=== PATIENT | male | born 1945 | race Caucasian/White ===

== ENCOUNTER 2017-01-19 07:46 | Outpatient (CLI) | payer MEDICARE | END 2017-01-19 07:47 | disposition home or self-care (01) | DX: R73.9 Hyperglycemia, unspecified (principal); Z12.5 Encounter for screening for malignant neoplasm of prostate | CPT/HCPCS: 36415; 80048; G0103 ==

== ENCOUNTER 2017-06-15 16:05 | Outpatient (CLI) | payer MEDICARE | END 2017-06-15 16:06 | disposition home or self-care (01) | LOC: LAB.R 16:05 | PROVIDERS: ATTEND Physician Assistant Medical | DX: R31.9 Hematuria, unspecified (principal) | CPT/HCPCS: 87086 ==

== ENCOUNTER 2017-09-08 07:50 | Outpatient (CLI) | payer MEDICARE ==
[2017-09-08 12:43] LABS: BASOPHILS # (AUTO) 0.1 10^3/uL (0.0-0.1); BASOPHILS % (AUTO) 0.7 %; EOSINOPHILS # (AUTO) 0.4 10^3/uL (0.0-0.7); EOSINOPHILS % (AUTO) 5.2 %; HCT - HEMATOCRIT 43.9 % (42.0-52.0); HGB - HEMOGLOBIN 14.6 g/dL (14.0-18.0); LYMPHOCYTES # (AUTO) 1.9 10^3/uL (1.5-3.5); MEAN CORPUSCULAR HEMOGLOBIN 31.6 pg (27.0-31.0); MEAN CORPUSCULAR HGB CONC 33.3 g/dL (32.0-36.0); MEAN CORPUSCULAR VOLUME 94.9 fL (80.0-94.0); MEAN PLATELET VOLUME 6.7 fL (7.4-11.4); MONOCYTES # (AUTO) 0.7 10^3/uL (0.0-1.0); MONOCYTES % (AUTO) 9.2 %; NEUTROPHILS # (AUTO) 4.9 10^3/uL (1.5-6.6); NEUTROPHILS % (AUTO) 60.9 %; NUCLEATED RED BLOOD CELLS AUTO 0.1 /100WBC; RED BLOOD COUNT 4.62 10^6/uL (4.70-6.10); RED CELL DISTRIBUTION WIDTH 14.3 % (12.0-15.0); UNCORRECTED WHITE BLOOD COUNT 8.1 x10^3/uL; WHITE BLOOD COUNT 8.1 x10^3/uL (4.8-10.8)
[2017-09-08 13:07] LABS: ALBUMIN/GLOBULIN RATIO 1.1 (1.0-2.2); BILIRUBIN,TOTAL 0.5 mg/dL (0.2-1.0); BUN - BLOOD UREA NITROGEN 14 mg/dL (6-20); CALCIUM 9.3 mg/dL (8.5-10.3); CARBON DIOXIDE - CO2 24 mmol/L (21-32); CHLORIDE 105 mmol/L (101-111); CHOL/HDL RATIO 5.4 (<5.0); CHOLESTEROL 156 mg/dL; GFR - MDRD 74 (>89); GLUCOSE 98 mg/dL (70-100); HDL CHOLESTEROL 29 mg/dL; LDL/HDL RATIO 3.7 (<3.6); POTASSIUM 4.6 mmol/L (3.5-5.0); SODIUM 136 mmol/L (135-145); TOTAL PROTEIN 7.5 g/dL (6.7-8.2); TRIGLYCERIDES 94 mg/dL; VLDL CHOLESTEROL 19 mg/dL
== END 2017-09-08 07:51 | disposition home or self-care (01) ==
LOC: LAB.WCP 07:50
PROVIDERS: ATTEND Physician Assistant Medical
DX: R73.9 Hyperglycemia, unspecified (principal); I71.4 Abdominal aortic aneurysm, without rupture; K21.9 Gastro-esophageal reflux disease without esophagitis
CPT/HCPCS: 36415; 80053; 80061; 85025

== ENCOUNTER 2018-05-04 08:02 | Outpatient (CLI) | payer MEDICARE ==
--- NOTE | 2018-05-04 11:17 | CT Report ---
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 TECHNIQUE: Routine helical CT imaging was performed through the abdomen and pelvis. IV contrast: None. Enteric contrast: Yes Reconstructions: Coronal and sagittal. In accordance with CT protocol optimization, one or more of the following dose reduction techniques were utilized for this exam: automated exposure control, adjustment of mA and/or KV based on patient size, or use of iterative reconstructive technique. FINDINGS: Lung Bases: Right lung dependent changes, atelectasis versus scarring. Liver: Normal. No masses. Gallbladder/Bile Ducts: Status post cholecystectomy. No intrahepatic biliary ductal dilation on noncontrast exam. Spleen: Unremarkable Pancreas: Unremarkable Adrenal Glands: Normal. Kidneys: Redemonstration of a 1.6 cm left renal lower pole calculus with local cortical atrophy, essentially unchanged. Additional 3 mm nonobstructing calculus in the right kidney. No right hydronephrosis. Redemonstration of stable obstructing right hydroureteronephrosis due to 1.6 cm ureteral calculus without surrounding fat stranding. Peritoneal Cavity/Bowel: Normal. No free fluid, free air or adenopathy. No masses or acute inflammatory process. The patient is status post right hemicolectomy. Pelvic Organs: Normal. The bladder and visualized pelvic organs are within normal limits. Vasculature: The abdominal aortic aneurysm status post [place] is stable measuring 4.1 x 4.1 cm in maximal AP by transverse dimensions. Bones: No significant abnormality. Other: None. IMPRESSION: 1. Stable AAA measuring up to 4.1 cm status post EVAR. 2. Stable chronic right urinary obstruction by 1.6 cm ureteral calculus. Given the excellent amount of remaining renal cortical parenchyma on the right, the patient should be evaluated for surgical candidacy by urology. Alternatively, referral for percutaneous management by interventional radiology should be considered. RADIA
--- NOTE | 2018-05-04 11:36 | CT Report ---
Procedure Date: 05/04/2018 Accession Number: [id number] / [id number] Procedure: CT - Chest W/O CPT Code: FULL RESULT: EXAM: Chest W/O DATE: 05/04/2018 8:41 AM CLINICAL HISTORY: ABDOMINAL AORTIC ANEURYSM WITHOUT RUPTURE COMPARISON: CT 07/17/[address] 01/03/2016. TECHNIQUE: Routine helical CT imaging was performed through the chest. IV contrast: None. Reconstructions: Coronal and sagittal. In accordance with CT protocol optimization, one or more of the following dose reduction techniques were utilized for this exam: automated exposure control, adjustment of mA and/or KV based on patient size, or use of iterative reconstructive technique. FINDINGS: Lungs/Pleura: The previously identified regional subsolid area in the right lower lobe measures 4.5 x 2.0 cm on today's examination demonstrates increased groundglass component. New 0.9 cm left lower lobe subpleural consolidation, nonspecific. Background of emphysema. Mediastinum: Enlargement of the known descending thoracic aortic aneurysm with maximal transverse dimension of 5.9 cm maximal AP dimension of 5.6 cm (previously 5.3 x 5.2 cm when remeasured in similar fashion). No adenopathy or masses. The heart is unremarkable. Bones: Unremarkable. Visualized Abdomen: See separate dictation from the same day. Other: The patient is status post median sternotomy. IMPRESSION: Enlargement of the descending aortic thoracic aneurysm to 5.9 x 5.6 cm (previously 5.3 x 5.2 cm). RADIA
== END 2018-05-04 08:03 | disposition home or self-care (01) ==
LOC: DI 08:02
PROVIDERS: ATTEND Surgery Vascular Surgery
DX: I71.4 Abdominal aortic aneurysm, without rupture (principal); N20.2 Calculus of kidney with calculus of ureter; N13.1 Hydronephrosis with ureteral stricture, not elsewhere classified
CPT/HCPCS: 71250; 74176

== ENCOUNTER 2019-01-03 08:00 | Outpatient (CLI) | payer MEDICARE | END 2019-01-03 23:59 | disposition home or self-care (01) | LOC: LAB.WCP 08:00 | PROVIDERS: ATTEND Physician Assistant Medical | DX: Z86.711 Personal history of pulmonary embolism (principal); Z79.01 Long term (current) use of anticoagulants | CPT/HCPCS: 81025 ==

== ENCOUNTER 2019-02-17 08:00 | Outpatient (CLI) | payer MEDICARE | END 2019-02-17 23:59 | disposition home or self-care (01) | LOC: LAB.WCP 08:00 | PROVIDERS: ATTEND Physician Assistant Medical | DX: Z51.81 Encounter for therapeutic drug level monitoring (principal); Z86.711 Personal history of pulmonary embolism; Z79.01 Long term (current) use of anticoagulants ==

== ENCOUNTER 2019-03-23 07:53 | Outpatient (CLI) | payer MEDICARE ==
--- NOTE | 2019-03-24 11:34 | Ultrasound Report ---
Reason: SOFT TISSUE MASS Procedure Date: 03/23/2019 Accession Number: [id number] / [id number] Procedure: US - Head or Neck Soft Tissue CPT Code: FULL RESULT: EXAM: NECK ULTRASOUND EXAM DATE: 03/23/2019 09:00 AM. CLINICAL HISTORY: Soft tissue mass. COMPARISON: NECK SOFT TISSUE W/O 07/17/2014 10:03 AM. TECHNIQUE: Real-time sonographic imaging was performed by the federal mediation commissioner utilizing color-flow. Multiple utility sales representative static images were saved for review. FINDINGS: No abnormal lymph nodes. No mass or collection identified. In the right submandibular region, there is a morphologically normal lymph node with normal fatty racheal measuring 2 x 0.3 x 1.1 cm. No abnormal calcifications are present. Remaining soft tissues are normal. IMPRESSION: 1. Morphologically normal 2 x 0.3 x 1.1 cm right submandibular node in area of concern. No abnormal calcifications. 2. No associated mass, bulky adenopathy or collection. RADIA
== END 2019-03-23 07:54 | disposition home or self-care (01) ==
LOC: DI 07:53
PROVIDERS: ATTEND Physician Assistant Medical
DX: M79.9 Soft tissue disorder, unspecified (principal)
CPT/HCPCS: 76536

== ENCOUNTER 2019-04-13 07:51 | Outpatient (CLI) | payer MEDICARE ==
[2019-04-13 08:09] LABS: BASOPHILS # (AUTO) 0.1 10^3/uL (0.0-0.1); BASOPHILS % (AUTO) 0.7 %; EOSINOPHILS # (AUTO) 0.3 10^3/uL (0.0-0.7); EOSINOPHILS % (AUTO) 3.4 %; HGB - HEMOGLOBIN 15.1 g/dL (14.0-18.0); LYMPHOCYTES # (AUTO) 2.3 10^3/uL (1.5-3.5); LYMPHOCYTES % (AUTO) 28.7 %; MEAN CORPUSCULAR HEMOGLOBIN 31.8 pg (27.0-31.0); MEAN CORPUSCULAR HGB CONC 32.4 g/dL (32.0-36.0); MEAN CORPUSCULAR VOLUME 98.1 fL (80.0-94.0); MEAN PLATELET VOLUME 8.8 fL (7.4-11.4); MONOCYTES # (AUTO) 0.9 10^3/uL (0.0-1.0); MONOCYTES % (AUTO) 11.6 %; NEUTROPHILS # (AUTO) 4.4 10^3/uL (1.5-6.6); NEUTROPHILS % (AUTO) 55.2 %; PLT - PLATELET COUNT 144 10^3/uL (130-450); RED BLOOD COUNT 4.75 10^6/uL (4.70-6.10); RED CELL DISTRIBUTION WIDTH 13.8 % (12.0-15.0)
[2019-04-13 08:26] LABS: ALBUMIN 4.2 g/dL (3.2-5.5); ALBUMIN/GLOBULIN RATIO 1.2 (1.0-2.2); ALKALINE PHOSPHATASE 58 IU/L (42-121); ALT ALANINE AMINOTRANSFERASE 29 IU/L (10-60); AST ASPARTATE AMINOTRANSFERASE 25 IU/L (10-42); BILIRUBIN,TOTAL 0.7 mg/dL (0.2-1.0); BUN - BLOOD UREA NITROGEN 21 mg/dL (6-20); CALCIUM 9.4 mg/dL (8.5-10.3); CARBON DIOXIDE - CO2 28 mmol/L (21-32); CHLORIDE 99 mmol/L (101-111); CHOL/HDL RATIO 5.6 (<5.0); CHOLESTEROL 161 mg/dL; CREATININE 0.9 mg/dL (0.6-1.2); GFR - MDRD 83 (>89); GLUCOSE 100 mg/dL (70-100); HDL CHOLESTEROL 29 mg/dL; LDL CHOLESTEROL,CALCULATED 108 mg/dL; LDL/HDL RATIO 3.7 (<3.6); SODIUM 137 mmol/L (135-145); TOTAL PROTEIN 7.8 g/dL (6.7-8.2); VLDL CHOLESTEROL 24 mg/dL
== END 2019-04-13 07:52 | disposition home or self-care (01) ==
LOC: LAB 07:51
PROVIDERS: ATTEND Physician Assistant Medical
DX: I10 Essential (primary) hypertension (principal); R73.9 Hyperglycemia, unspecified; K21.9 Gastro-esophageal reflux disease without esophagitis
CPT/HCPCS: 36415; 80053; 80061; 83721; 85025

== ENCOUNTER 2019-05-06 07:08 | Outpatient (CLI) | payer MEDICARE ==
[2019-05-06] MEDS ORDERED: IOVERSOL 320 100 ML VIAL IVP ONE ×2 (07:24→07:55)
--- NOTE | 2019-05-06 12:46 | CT Report ---
Reason: THORACOABDOMINAL AORTIC ANEURYSM W/O RUPTURE Procedure Date: 05/06/2019 Accession Number: [id number] / [id number] Procedure: CT - ANGIO CHEST W/WO CPT Code: FULL RESULT: EXAM: CTA CHEST EXAM DATE: 05/06/2019 07:46 AM. 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 COMPARISON: CHEST W/O 05/04/2018 8:22 AM. HEAD OR NECK SOFT TISSUE 03/23/2019 8:38 AM. ABDOMEN/PELVIS W/O 05/04/2018 8:22 AM. TECHNIQUE: Prior to and following intravenous administration of Optiray 320; 80 mL, multiplanar 3D/MIP reconstruction of the thoracic aorta was performed. In accordance with CT protocol optimization, one or more of the following dose reduction techniques were utilized for this exam: automated exposure control, adjustment of mA and/or KV based on patient size, or use of iterative reconstructive technique. 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 The aneurysm is overall fusiform in appearance and begins 3.8 cm from the vessel origin at the aortic arch just distal to the origin of the left vertebral artery which arises from this vessel. The mostly fusiform aneurysm demonstrates a saccular outpouching posteriorly as it gives rise to the second intercostal artery on the left. Overall dimensions are a length of approximately 5.2 cm by a height of approximately 2.2 cm with the widest AP dimension of 2.7 cm at the site of the intercostal artery origin. Within the limitations of the noncontrast study performed in 2018, comparison reveals a relatively similar configuration and size. The sinuses of Valsalva measure 4.2 x 3.3 cm. The sinotubular junction measures 3.6 x 3.2 cm. The proximal ascending thoracic aorta measures 3.6 x 3.4 cm. Distal ascending aorta just proximal to the stent measures 3.5 x 3.2 cm. The aortic arch measures 3.0 x 3.2 cm. Aorta distal to the last takeoff measures 3.4 x 3.5 cm. The proximal descending thoracic aorta measures 3.3 x 3.6 cm. The distal descending thoracic aorta, distal to stent graft, measures 3.2 x 3.2 cm. Lungs/Pleura: Mild amount of apical scarring and upper lobe predominant emphysema, mild to moderate. There is a 1.4 x 1.3 cm nodule adjacent to the right hilum on image 71 series 7, previously up to 1.0 cm in 2018. A triangular fissure-based right lower lobe nodule measuring up to 0.7 cm can be seen on image 92. A small amount of atelectasis is seen in the right lower lobe on image 115. No consolidation, or edema. No effusions or pneumothorax. Mediastinum: A left thyroid nodule is noted, peripherally enhancing and centrally hypoechoic, approximately 1 cm on image 13. There is prominence of left hilar nodes as seen on image 86 series 14 and image 72 series 7, up to 1 cm in short axis, less pronounced appearance in the left hilum see image 80, 0.6 cm in short axis. Upper Abdomen: A low density 7.5 x 6.6 cm upper pole right renal lesion is not characterized on this examination, measured simple fluid in April 2018. Other: None. IMPRESSION: Interval stent graft repair of the aorta with improved caliber and no evidence of stent graft failure. Similar-appearing left subclavian artery aneurysm as described. Interval enlargement of the largest pulmonary nodule, recommend transbronchial biopsy given location favorable for this approach or characterization by PET CT. Thyroid nodule as described, recommend thyroid ultrasound on routine outpatient basis. RADIA
== END 2019-05-06 07:09 | disposition home or self-care (01) ==
LOC: DI 07:08
PROVIDERS: ATTEND Surgery Vascular Surgery
DX: I72.8 Aneurysm of other specified arteries (principal); R91.1 Solitary pulmonary nodule; E04.1 Nontoxic single thyroid nodule; J43.9 Emphysema, unspecified
CPT/HCPCS: 71275; Q9967

== ENCOUNTER 2019-06-07 12:06 | Outpatient (CLI) | payer MEDICARE ==
--- NOTE | 2019-06-09 03:17 | CT Report ---
Reason: ABDOMINAL AORTIC ANEURYSM W/O RUPTURE Procedure Date: 06/07/2019 Accession Number: [id number] / [id number] Procedure: CT - Abdomen/Pelvis WO CPT Code: FULL RESULT: EXAM: CT ABDOMEN AND PELVIS EXAM DATE: 06/07/2019 12:24 PM. CLINICAL HISTORY: Abdominal aortic aneurysm without rupture. COMPARISONS: CHEST ANGIO 05/06/2019 7:38 AM ABDOMEN/PELVIS W/O 05/04/2018 8:22 AM. TECHNIQUE: Routine helical CT imaging was performed through the abdomen and pelvis. IV contrast: None. Enteric contrast: No. Reconstructions: Coronal and sagittal. In accordance with CT protocol optimization, one or more of the following dose reduction techniques were utilized for this exam: automated exposure control, adjustment of mA and/or KV based on patient size, or use of iterative reconstructive technique. FINDINGS: Lung Bases: Mild atelectatic change in right lower lobe. Liver: Unremarkable noncontrast CT. No masses. Gallbladder/Bile Ducts: Cholecystectomy. No biliary dilation. Spleen: Stable in configuration, unremarkable. Pancreas: Normal. Adrenal Glands: Normal. Kidneys: Redemonstration of left lower pole renal calculi/calcifications and scarring. Redemonstration of right hydroureteronephrosis due to 1.6 cm proximal ureteral calculus, stable. Additional nonobstructive right renal calculi versus milk of calcium. Stable right upper pole renal cyst. Peritoneal Cavity/Bowel: No bowel obstruction or significant bowel wall thickening. Scattered colonic diverticula without evidence of acute diverticulitis. Stable postsurgical changes of right hemicolectomy. No free fluid or free air. Mildly prominent inguinal lymph nodes. No mesenteric or retroperitoneal lymphadenopathy. Pelvic Organs: Bladder is underdistended. Stable prostate measuring 4.4 cm transverse. Vasculature: Stable aortobiiliac stent graft repair of infrarenal abdominal aorta measuring 4.1 x 4.1 cm in maximum AP by transverse dimensions. Atherosclerotic vascular disease. Stable appearance of celiac axis and SMA which appear diminutive with calcifications. No retroperitoneal hemorrhage. Bones: Degenerative changes of lumbar spine. No acute osseous abnormality. IMPRESSION: 1. Stable aortobiiliac stent graft repair of infrarenal AAA measuring up to 4.1 cm. 2. Stable chronic right urinary obstruction due to 1.6 cm right proximal ureteral calculus with hydroureteronephrosis. Urology consultation suggested for further evaluation/management if not already performed. Additional stable bilateral renal findings as above. 3. Status post cholecystectomy and right hemicolectomy. RADIA
--- NOTE | 2019-06-09 03:45 | CT Report ---
Reason: ABDOMINAL AORTIC ANEURYSM W/O RUPTURE Procedure Date: 06/07/2019 Accession Number: [id number] / [id number] Procedure: CT - CHEST WO CPT Code: FULL RESULT: EXAM: CT CHEST EXAM DATE: 06/07/2019 12:24 PM. CLINICAL HISTORY: ABDOMINAL AORTIC ANEURYSM W/O RUPTURE. COMPARISONS: CHEST ANGIO 05/06/2019 7:38 AM. TECHNIQUE: Routine helical CT imaging was performed through the chest. IV contrast: None. Reconstructions: Coronal and sagittal. In accordance with CT protocol optimization, one or more of the following dose reduction techniques were utilized for this exam: automated exposure control, adjustment of mA and/or KV based on patient size, or use of iterative reconstructive technique. FINDINGS: Vascular Structures: Stable endovascular repair of thoracic aortic aneurysm. Ascending thoracic aorta measures 3.6 cm. Aortic arch just proximal to stent measures 3.4 cm. Aortic arch measures 3.7 cm. Descending thoracic aorta measures 3.6 cm. 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 Stable endovascular repair of abdominal aortic aneurysm. Coronary artery calcifications are present. Aortic valve calcifications are present. Lungs/Pleura: Stable appearance of lungs with mild apical scarring and scattered mild interstitial prominence and mild scarring in lateral aspect of right lower lobe. Stable 10 mm right perihilar nodule. No focal consolidation or pulmonary edema. Mild central bronchial wall thickening. No pleural effusion or pneumothorax. Mediastinum: Normal cardiac size. No pericardial effusion. No mediastinal lymphadenopathy.. Bones: Osseous degenerative changes. No acute abnormality. Visualized Abdomen: Mild fatty infiltration of liver. Cholecystectomy. Stable right upper pole low attenuation renal lesion. Bilateral renal calcifications/calculi with obstructive calculus in right proximal ureter with moderate hydroureteronephrosis. Postsurgical changes of right hemicolectomy. IMPRESSION: 1. Stable stent graft repair of thoracic aorta. 2. Stable aneurysmal dilation of left subclavian artery. 3. Stable right perihilar 10 mm nodule. Further workup recommended if not already performed. 4. No evidence of acute abnormality in the chest. 5. Nonacute findings in visualized abdomen include mild hepatic steatosis, obstructive right proximal ureteral calculus with moderate hydroureteronephrosis and other incidental findings described above. RADIA
== END 2019-06-07 12:07 | disposition home or self-care (01) ==
LOC: DI 12:06
PROVIDERS: ATTEND Surgery Vascular Surgery
DX: I72.8 Aneurysm of other specified arteries (principal); N13.2 Hydronephrosis with renal and ureteral calculous obstruction; R91.1 Solitary pulmonary nodule; K76.0 Fatty (change of) liver, not elsewhere classified; Z90.49 Acquired absence of other specified parts of digestive tract
CPT/HCPCS: 71250; 74176

== ENCOUNTER 2019-06-15 08:00 | Outpatient (CLI) | payer MEDICARE | END 2019-06-15 23:59 | disposition home or self-care (01) | LOC: LAB.WCP 08:00 | PROVIDERS: ATTEND Physician Assistant Medical | DX: Z86.711 Personal history of pulmonary embolism (principal); Z79.01 Long term (current) use of anticoagulants ==

== ENCOUNTER 2019-06-28 10:04 | Outpatient (CLI) | payer MEDICARE ==
--- NOTE | 2019-06-29 09:58 | Ultrasound Report ---
Reason: SUBCLAVIAN ANEURYSM Procedure Date: 06/28/2019 Accession Number: [id number] / [id number] Procedure: US - Duplex Upr Ext Arterial LT CPT Code: FULL RESULT: EXAM: UNILATERAL LEFT UPPER EXTREMITY ARTERIAL DOPPLER ULTRASOUND EXAM DATE: 06/28/2019 11:08 AM. CLINICAL HISTORY: Subclavian aneurysm. COMPARISON: CHEST ANGIO 05/06/2019 7:38 AM. TECHNIQUE: Real-time sonographic vascular imaging was performed by the locomotive pipe fitter, utilizing color-flow, Doppler flow, and spectral analysis. Multiple accounts receivable representative static images were saved for review. FINDINGS: Proximal left subclavian arterial aneurysm measuring 2.7 x 2.7 cm, previously 2.6 cm on CTA 05/06/2019. Triphasic Doppler waveforms. Left Upper Extremity Velocities: Subclavian prox: 29 cm/s. Subclavian mid: 34 cm/s. Subclavian distal: 60 cm/s. Axillary: 25 cm/s. Brachial prox: 41 cm/s. Brachial dist: 53 cm/s. Radial prox: 33 cm/s. Radial distal: 42 cm/s. Ulnar prox: 28 cm/s Ulnar dist: 29 cm/s. IMPRESSION: 1. Proximal left subclavian arterial aneurysm is again noted. No significant interval change compared to CTA 05/06/2019. RADIA
== END 2019-06-28 10:05 | disposition home or self-care (01) ==
LOC: DI 10:04
PROVIDERS: ATTEND Surgery Vascular Surgery
DX: I72.8 Aneurysm of other specified arteries (principal)

== ENCOUNTER 2019-07-13 08:00 | Outpatient (CLI) | payer MEDICARE | END 2019-07-13 23:59 | disposition home or self-care (01) | LOC: LAB.WCP 08:00 | PROVIDERS: ATTEND Physician Assistant Medical | DX: Z86.711 Personal history of pulmonary embolism (principal); Z79.01 Long term (current) use of anticoagulants ==

== ENCOUNTER 2019-07-17 08:53 | Emergency (ER) | payer MEDICARE ==
--- NOTE | 2019-07-17 09:05 | ED Physician Documentation ---
PD HPI CHEST PAIN - Stated complaint Stated Complaint: LT ARM PX/NAUSEA/SWEATING - History obtained from History obtained from: Patient - History of Present Illness Timing - onset: How many minutes ago (45) Timing - onset during: Rest Timing - duration: Minutes (45) Timing - details: Abrupt onset (Patient states he had an abrupt onset of substernal chest pain and pressure associated with lightheadedness nausea and sweatiness. He did feel some shortness of breath. There is no pleuritic pain. He denies any prior similar episodes.) Quality: Pressure, Tightness Location: Substernal Radiation: Left upper extremity Improved by: No: Rest Worsened by: No: Inspiration, Movement Associated symptoms: Diaphoresis, Nausea, Feeling faint / dizzy, General Weakness. No: Cough Similar symptoms before: Has not had sx before Recently seen: Not recently seen Review of Systems Constitutional: denies: Fever, Chills Nose: denies: Rhinorrhea / runny nose, Congestion Throat: denies: Sore throat Respiratory: denies: Cough GI: reports: Nausea. denies: Vomiting, Diarrhea Neurologic: denies: Focal weakness, Numbness, Near syncope, Headache PD PAST MEDICAL HISTORY - Past Medical History Cardiovascular: Deep vein thrombosis, Pulmonary embolism Respiratory: Sleep apnea, CPAP use Endocrine/Autoimmune: None GI: Other : Kidney stones HEENT: None Psych: Depression Musculoskeletal: Osteoarthritis Derm: None - Past Surgical History Past Surgical History: Yes General: Cholecystectomy - Present Medications Home Medications: Ambulatory Orders Medication Instructions Recorded Confirmed Ascorbic Acid [Vitamin C] 1,000 mg PO DAILY 03/24/13 08/20/16 Cholecalciferol (Vitamin D3) 500 unit PO DAILY 03/24/13 08/20/16 [Vitamin D3] Multivitamin [Multivitamins] 1 each PO DAILY 03/24/13 08/20/16 Warfarin Sodium 5 mg PO DAILY 03/24/13 08/20/16 Citalopram [CeleXA] 40 mg PO DAILY 10/08/13 08/20/16 Tramadol HCl 50 mg PO TID PRN 10/08/13 08/20/16 Zolpidem Tartrate [Ambien] 10 mg PO DAILY PRN 03/01/14 08/20/16 Metoprolol Succinate 25 mg PO DAILY 04/30/15 08/20/16 - Allergies Allergies/Adverse Reactions: Allergies Allergy/AdvReac Type Severity Reaction Status Date / Time oxycodone AdvReac Hallucinati Verified 07/17/19 09:02 ons - Social History Does the pt smoke?: Yes Smoking Status: Current every day smoker Does the pt drink ETOH?: No Does the pt have substance abuse?: No PD ED PE NORMAL - Vitals Vital signs reviewed: Yes - General General: Alert and oriented X 3, Well developed/nourished, Other (He appears slightly sweaty and diaphoretic. Mild pallor. He is respirations are unlabored.) - HEENT HEENT: Atraumatic - Neck Neck: Supple, no meningeal sign, No adenopathy - Cardiac Cardiac: RRR, No murmur - Respiratory Respiratory: Clear bilaterally - Abdomen Abdomen: Soft, Non tender - Derm Derm: Normal color, Warm and dry - Extremities Extremities: No tenderness to palpate, Normal ROM s pain, No calf tenderness / cord, Other (1+ edema in both ankles. ) - Neuro Neuro: Alert and oriented X 3, No motor deficit, Normal speech Eye Opening: Spontaneous Motor: Obeys Commands Verbal: Oriented GCS Score: 15 Results - Vitals Vitals: Vital Signs - 24 hr 07/17/19 09:02 Temperature 36.3 C L Heart Rate 85 Respiratory 17 Rate Blood Pressure 182/95 H O2 Saturation 96 Oxygen O2 Source Room air - EKG (time done) on presentation Rate: Rate (enter#) Rhythm: NSR [place]: Normal Intervals: Normal SC QRS: Normal Ischemia: Normal ST segments, ST elevation c/w ischemia (Leads I and aVL), ST depression (inferior Lead 2 and 3) PD MEDICAL DECISION MAKING - ED course Complexity details: reviewed results, re-evaluated patient (He is feeling nauseated. He did start having improvement in his pain and ST elevations appearing improving after NTG and Metoprolol. HR to 45 but remains consistent at that jordy. BP improved. ), d/w compensation consultant (Dr. Cisneros, ER at [facility], who accepts the STEMI transfer) ED course: Had patient ready for transfer including all medications and last drips started at about the 32-minute mack. EMS was contemplating whether we should try helicopter transfer. I talked with the lead medic about having a pre-existing streamlined protocol for STEMI transfers and the time to reexamine that would be in committee or other discussion and not at this point. Subsequently they did agree to do a ground transfer. However that did cause some delay. The patient's left the department in stable condition with heart rate in the 40s, adequate blood pressure, improving symptoms, IVs in place and medications running. - Critical Care Time(min): 40 Time Includes: Direct patient care, Reassess patient, Document care, Coordinate care, Medical consult Data interpretation: Labs, CXR Procedures excluded from critical care time: EKG Departure - Departure Disposition: 02 Transfer Acute Care Hosp Clinical Impression: ST elevation myocardial infarction (STEMI) of inferolateral wall Condition: Stable Record reviewed to determine appropriate education?: Yes
[2019-07-17] MEDS ORDERED: ASPIRIN CHEW 81 MG TABLET PO ONE (09:10)
[2019-07-17] MEDS ORDERED: MORPHINE 2 MG/ML CARPUJECT IVP STA (09:13)
[2019-07-17] MEDS ORDERED: SODIUM CHLORIDE 0.9% 1,000 ML IV ONE (09:14)
[2019-07-17] MEDS: CLOPIDOGREL 300 MG TABLET PO ONE (09:19)
[2019-07-17] MEDS ORDERED: HEPARIN 5,000 UNIT/ML VIAL ONE (09:21)
[2019-07-17] MEDS ORDERED: ASPIRIN CHEW 81 MG TABLET ONE (09:21)
[2019-07-17] MEDS ORDERED: CLOPIDOGREL 300 MG TABLET PO ONE (09:21)
[2019-07-17] MEDS: NITROGLYCERIN SL 0.4 MG TABLET SL STA ×2 (09:21→09:27)
[2019-07-17] MEDS ORDERED: NITROGLYCERIN SL 0.4 MG TABLET SL ONE (09:21)
[2019-07-17] MEDS ORDERED: ONDANSETRON 4 MG/2 ML VIAL IVP STA (09:21)
[2019-07-17] MEDS ORDERED: METOPROLOL TARTRATE 50 MG TABLET ONE (09:21)
[2019-07-17] MEDS ORDERED: HEPARIN 25000UNITS/500ML (D5W) 25,000 UNIT/500 ML BAG IV ONE (09:22)
[2019-07-17] MEDS ORDERED: METOPROLOL 5 MG/5 ML VIAL IVP STA (09:24)
[2019-07-17 09:27] LABS: BASOPHILS % (AUTO) 0.5 %; EOSINOPHILS % (AUTO) 0.2 %; HGB - HEMOGLOBIN 15.7 g/dL (14.0-18.0); LYMPHOCYTES # (AUTO) 2.7 10^3/uL (1.5-3.5); LYMPHOCYTES % (AUTO) 32.9 %; MEAN CORPUSCULAR HGB CONC 33.3 g/dL (32.0-36.0); MEAN CORPUSCULAR VOLUME 95.9 fL (80.0-94.0); MEAN PLATELET VOLUME 8.4 fL (7.4-11.4); MONOCYTES # (AUTO) 0.9 10^3/uL (0.0-1.0); MONOCYTES % (AUTO) 11.4 %; NEUTROPHILS # (AUTO) 4.4 10^3/uL (1.5-6.6); NEUTROPHILS % (AUTO) 54.6 %; PLT - PLATELET COUNT 176 10^3/uL (130-450); RED BLOOD COUNT 4.91 10^6/uL (4.70-6.10); RED CELL DISTRIBUTION WIDTH 14.2 % (12.0-15.0); WHITE BLOOD COUNT 8.1 x10^3/uL (4.8-10.8)
[2019-07-17] MEDS ORDERED: NITROGLYCERIN 50 MG/250 ML 50 MG/250 ML BOTTLE IV STA (09:27)
[2019-07-17] MEDS ORDERED: ONDANSETRON 4 MG/2 ML VIAL ONE (09:34)
[2019-07-17 09:38] LABS: ALBUMIN 4.3 g/dL (3.2-5.5); ALBUMIN/GLOBULIN RATIO 1.1 (1.0-2.2); BILIRUBIN,TOTAL 0.8 mg/dL (0.2-1.0); CALCIUM 8.9 mg/dL (8.5-10.3); TOTAL PROTEIN 8.2 g/dL (6.7-8.2)
[2019-07-17 09:41] VITALS: BP 98/60
--- NOTE | 2019-07-17 09:54 | XRAY Report ---
Reason: chest pain Procedure Date: 07/17/2019 Accession Number: [id number] / [id number] Procedure: XR - Chest 1 View X-Ray CPT Code: 07894 FULL RESULT: EXAM: CHEST RADIOGRAPHY EXAM DATE: 07/17/2019 09:04 AM. CLINICAL HISTORY: Chest pain. COMPARISON: CHEST W/O 06/07/2019 12:14 PM. TECHNIQUE: 1 view. FINDINGS: Lungs/Pleura: No focal opacities evident. No pleural effusion. No pneumothorax. Mediastinum: Intact median sternotomy wires. Stable endograft stent repair of the aortic arch and proximal descending aorta. Surgical clips in the right axillary region. Other: None. IMPRESSION: No radiographic evidence of acute cardiopulmonary disease. RADIA
[2019-07-17 09:59] LABS: INR 1.8 (0.8-1.2); PT - PROTHROMBIN TIME 19.5 secs (9.9-12.6)
[2019-07-17] MEDS ORDERED: HEPARIN 25000UNITS/500ML (D5W) 25,000 UNIT/500 ML BAG IV SCH (10:00)
[2019-07-17] MEDS ORDERED: ATORVASTATIN 40 MG TABLET PO SCH (21:00)
== END 2019-07-17 09:57 | disposition short-term general hospital (02) ==
LOC: ED 08:53
DX: I21.19 ST elevation (STEMI) myocardial infarction involving other coronary artery of inferior wall (principal); Z86.711 Personal history of pulmonary embolism; Z86.718 Personal history of other venous thrombosis and embolism; Z79.01 Long term (current) use of anticoagulants; F17.200 Nicotine dependence, unspecified, uncomplicated
CPT/HCPCS: 36415; 71045; 80053; 83690; 84484; 85025; 85610; 93005; 96374; 96375; 99285; 99291; A9270

== ENCOUNTER 2019-07-17 09:46 | Outpatient (CLI) | payer MEDICARE | END 2019-07-17 09:47 | disposition short-term general hospital (02) | LOC: EMS 09:46 | PROVIDERS: ATTEND Surgery | DX: I21.19 ST elevation (STEMI) myocardial infarction involving other coronary artery of inferior wall (principal) | CPT/HCPCS: A0425; A0433 ==

== ENCOUNTER 2020-08-01 08:00 | Outpatient (CLI) | payer MEDICARE ==
[2020-08-01 12:25] LABS: BASOPHILS # (AUTO) 0.1 10^3/uL (0.0-0.1); BASOPHILS % (AUTO) 0.8 %; EOSINOPHILS # (AUTO) 0.2 10^3/uL (0.0-0.7); EOSINOPHILS % (AUTO) 2.4 %; HGB - HEMOGLOBIN 14.8 g/dL (14.0-18.0); LYMPHOCYTES # (AUTO) 1.9 10^3/uL (1.5-3.5); LYMPHOCYTES % (AUTO) 22.3 %; MEAN CORPUSCULAR HGB CONC 32.5 g/dL (32.0-36.0); MEAN CORPUSCULAR VOLUME 98.5 fL (80.0-94.0); MEAN PLATELET VOLUME 9.2 fL (7.4-11.4); MONOCYTES # (AUTO) 0.9 10^3/uL (0.0-1.0); MONOCYTES % (AUTO) 9.9 %; NEUTROPHILS # (AUTO) 5.6 10^3/uL (1.5-6.6); NEUTROPHILS % (AUTO) 64.3 %; PLT - PLATELET COUNT 185 10^3/uL (130-450); RED BLOOD COUNT 4.62 10^6/uL (4.70-6.10); RED CELL DISTRIBUTION WIDTH 14.9 % (12.0-15.0); WHITE BLOOD COUNT 8.7 x10^3/uL (4.8-10.8)
[2020-08-01 12:57] LABS: ALBUMIN 4.3 g/dL (3.2-5.5); ALBUMIN/GLOBULIN RATIO 1.3 (1.0-2.2); ALKALINE PHOSPHATASE 75 IU/L (42-121); ALT ALANINE AMINOTRANSFERASE 27 IU/L (10-60); AST ASPARTATE AMINOTRANSFERASE 25 IU/L (10-42); BILIRUBIN,TOTAL 0.7 mg/dL (0.2-1.0); BUN - BLOOD UREA NITROGEN 17 mg/dL (6-20); CALCIUM 9.7 mg/dL (8.5-10.3); CARBON DIOXIDE - CO2 24 mmol/L (21-32); CHLORIDE 106 mmol/L (101-111); CHOL/HDL RATIO 3.4 (<5.0); CHOLESTEROL 105 mg/dL; CREATININE 1.1 mg/dL (0.6-1.2); GLUCOSE 116 mg/dL (70-100); HDL CHOLESTEROL 31 mg/dL; LDL CHOLESTEROL,CALCULATED 61 mg/dL; SODIUM 139 mmol/L (135-145); TOTAL PROTEIN 7.5 g/dL (6.7-8.2); VLDL CHOLESTEROL 13 mg/dL
[2020-08-01 13:13] LABS: HEMOGLOBIN A1c% 6.6 % (4.27-6.07)
== END 2020-08-01 23:59 | disposition home or self-care (01) ==
LOC: LAB.WCP 08:00
PROVIDERS: ATTEND Physician Assistant Medical
DX: I10 Essential (primary) hypertension (principal); I21.3 ST elevation (STEMI) myocardial infarction of unspecified site; R73.9 Hyperglycemia, unspecified
CPT/HCPCS: 36415; 80053; 80061; 83036; 83721; 85025

== ENCOUNTER 2020-09-14 08:00 | Outpatient (CLI) | payer MEDICARE | END 2020-09-14 23:59 | disposition home or self-care (01) | LOC: LAB.WCP 08:00 | PROVIDERS: ATTEND Physician Assistant | DX: Z79.01 Long term (current) use of anticoagulants (principal) ==

== ENCOUNTER 2021-01-23 08:00 | Outpatient (CLI) | payer MEDICARE | END 2021-01-23 23:59 | disposition home or self-care (01) | LOC: LAB.N 08:00 | PROVIDERS: ATTEND Physician Assistant Medical | DX: Z86.711 Personal history of pulmonary embolism (principal); Z79.01 Long term (current) use of anticoagulants ==

== ENCOUNTER 2021-01-25 07:36 | Outpatient (CLI) | payer MEDICARE ==
[2021-01-25 08:19] LABS: CREATININE,URINE 212.6 mg/dL; MICROALBUM/CREATININE RATIO,UR 8.5 ug/mg (<30.0); MICROALBUMIN,URINE 1.8 mg/dL (0-300.0)
[2021-01-25 08:24] LABS: ALBUMIN 4.4 g/dL (3.2-5.5); ALBUMIN/GLOBULIN RATIO 1.3 (1.0-2.2); ALKALINE PHOSPHATASE 77 IU/L (42-121); ALT ALANINE AMINOTRANSFERASE 30 IU/L (10-60); AST ASPARTATE AMINOTRANSFERASE 30 IU/L (10-42); BUN - BLOOD UREA NITROGEN 16 mg/dL (6-20); CALCIUM 9.6 mg/dL (8.5-10.3); CARBON DIOXIDE - CO2 27 mmol/L (21-32); CHLORIDE 106 mmol/L (101-111); CHOL/HDL RATIO 3.8 (<5.0); CHOLESTEROL 99 mg/dL; CREATININE 1.1 mg/dL (0.6-1.2); GFR - MDRD 65 (>89); GLUCOSE 126 mg/dL (70-100); HDL CHOLESTEROL 26 mg/dL; LDL CHOLESTEROL,CALCULATED 57 mg/dL; LDL/HDL RATIO 2.2 (<3.6); POTASSIUM 4.3 mmol/L (3.5-5.0); SODIUM 141 mmol/L (135-145); TOTAL PROTEIN 7.8 g/dL (6.7-8.2); TRIGLYCERIDES 79 mg/dL; VLDL CHOLESTEROL 16 mg/dL
[2021-01-25 08:35] LABS: THYROID STIMULATING HORMONE 1.09 uIU/mL (0.34-5.60)
[2021-01-25 12:09] LABS: ESTIMATED AVERAGE GLUCOSE 134 mg/dL (70-100); HEMOGLOBIN A1c% 6.3 % (4.27-6.07)
== END 2021-01-25 07:37 | disposition home or self-care (01) ==
LOC: LAB 07:36
PROVIDERS: ATTEND Physician Assistant Medical
DX: E11.9 Type 2 diabetes mellitus without complications (principal)
CPT/HCPCS: 36415; 80053; 80061; 82043; 82570; 83036; 83721; 84443

== ENCOUNTER 2021-02-08 08:00 | Outpatient (CLI) | payer MEDICARE | END 2021-02-08 23:59 | disposition home or self-care (01) | LOC: LAB.N 08:00 | PROVIDERS: ATTEND Physician Assistant Medical | DX: Z79.01 Long term (current) use of anticoagulants (principal); Z86.711 Personal history of pulmonary embolism ==

== ENCOUNTER 2021-04-17 08:00 | Outpatient (CLI) | payer MEDICARE | END 2021-04-17 23:59 | disposition home or self-care (01) | LOC: LAB.N 08:00 | PROVIDERS: ATTEND Physician Assistant Medical | DX: Z79.01 Long term (current) use of anticoagulants (principal); Z86.711 Personal history of pulmonary embolism ==

== ENCOUNTER 2021-04-20 11:50 | Emergency (ER) | payer MEDICARE ==
--- NOTE | 2021-04-20 14:29 | ED Physician Documentation ---
History of Present Illness - Stated complaint Stated Complaint: DIARRHEA - Chief complaint Chief Complaint: Abd Pain - Additonal information Additional information: 76-year-old male presents the emergency department for evaluation of diarrhea that is been ongoing for about 2 weeks. It began after eating guacamole at his grandsons graduation. The next morning he noted that he had some soft stool but over the last 2 weeks he has been having 2 bouts of watery sometimes mushy green stools. He denies fevers or abdominal pain. No significant cramping. He is concerned as this has failed to improve. He does have a remote history of colon resection secondary to a mass his biggest concern today is that the diarrhea may be related to colon cancer. Review of Systems Constitutional: denies: Fever, Chills Eyes: reports: Reviewed and negative Ears: reports: Reviewed and negative Nose: reports: Rhinorrhea / runny nose Throat: reports: Reviewed and negative Cardiac: reports: Reviewed and negative Respiratory: reports: Reviewed and negative GI: reports: Diarrhea : reports: Reviewed and negative Skin: reports: Reviewed and negative PD PAST MEDICAL HISTORY - Past Medical History Past Medical History: Yes Cardiovascular: Hypertension, Deep vein thrombosis, Pulmonary embolism, [place], Other Respiratory: Sleep apnea, CPAP use Endocrine/Autoimmune: Type 2 diabetes GI: GERD, Other : Kidney stones HEENT: None Psych: Depression Musculoskeletal: Osteoarthritis Derm: None - Past Surgical History Past Surgical History: Yes General: Cholecystectomy - Present Medications Home Medications: Ambulatory Orders Medication Instructions Recorded Confirmed Ascorbic Acid [Vitamin C] 1,000 mg PO DAILY 03/24/13 11/27/20 Cholecalciferol (Vitamin D3) 50 mcg PO DAILY 03/24/13 11/27/20 [Vitamin D3] Multivitamin [Multivitamins] 1 each PO DAILY 03/24/13 11/27/20 Warfarin Sodium 5 mg PO DAILY 03/24/13 11/27/20 Tramadol HCl 50 mg PO TID PRN 10/08/13 11/27/20 Metoprolol Succinate 12.5 mg PO BID 04/30/15 11/27/20 Atorvastatin Calcium 40 mg PO QPM 11/27/20 11/27/20 Clopidogrel [Plavix] 75 mg PO DAILY 11/27/20 11/27/20 DULoxetine [Cymbalta] 30 mg PO DAILY 11/27/20 11/27/20 Furosemide [Lasix] 20 mg PO DAILY 11/27/20 11/27/20 lisinopriL [Prinivil] 5 mg PO DAILY 11/27/20 11/27/20 Amox/Clav 875/125 [Augmentin] 1 each PO Q12H #10 tablet 04/20/21 Lactobacillus Acidophilus 1 each PO BID #20 04/20/21 [Acidophilus Lactobacilli] - Allergies Allergies/Adverse Reactions: Allergies Allergy/AdvReac Type Severity Reaction Status Date / Time oxycodone AdvReac Hallucinati Verified 04/20/21 12:02 ons - Social History Does the pt smoke?: Yes Smoking Status: Current every day smoker Does the pt drink ETOH?: No Does the pt have substance abuse?: No - Immunizations Immunizations are current?: Yes PD ED PE NORMAL - General General: Alert and oriented X 3, No acute distress - Neck Neck: Supple, no meningeal sign - Cardiac Cardiac: RRR, No murmur - Respiratory Respiratory: Clear bilaterally - Abdomen Abdomen: Normal bowel sounds, Soft, Non tender, Non distended - Back Back: No CVA TTP, No spinal TTP - Derm Derm: Normal color, Warm and dry, No rash - Neuro Neuro: Alert and oriented X 3 Eye Opening: Spontaneous Motor: Obeys Commands Verbal: Oriented GCS Score: 15 Results - Vitals Vitals: Vital Signs - 24 hr 04/20/21 04/20/21 04/20/21 11:58 12:02 14:02 Temperature 36.7 C 36.7 C Heart Rate 76 76 72 Respiratory 20 20 16 Rate Blood Pressure 123/82 H 123/82 H 120/80 O2 Saturation 96 96 98 Oxygen O2 Source Room air - Labs Labs: Laboratory Tests 04/20/21 04/20/21 04/20/21 12:05 14:15 14:15 WBC 8.0 RBC 4.47 L Hgb 14.2 Hct 42.6 MCV 95.3 H MCH 31.8 H MCHC 33.3 RDW 14.6 Plt Count 183 MPV 8.9 Neut # (Auto) 5.4 Lymph # (Auto) 1.6 [place] # (Auto) 0.8 Eos # (Auto) 0.2 Baso # (Auto) 0.1 Absolute Nucleated RBC 0.00 Nucleated RBC % 0.0 Sodium 136 Potassium 3.9 Chloride 102 Carbon Dioxide 25 Anion Gap 9.0 BUN 16 Creatinine 1.0 Estimated GFR (MDRD) 73 L Glucose 92 Calcium 9.1 Total Bilirubin 0.9 AST 22 ALT 21 Alkaline Phosphatase 77 Total Protein 7.5 Albumin 4.2 Globulin 3.3 Albumin/Globulin Ratio 1.3 Lipase 29 Urine Color YELLOW Urine Clarity CLEAR Urine pH 6.0 Ur Specific [place] 1.015 Urine Protein NEGATIVE Urine Glucose (UA) NEGATIVE Urine Ketones NEGATIVE Urine Occult Blood NEGATIVE Urine Nitrite NEGATIVE Urine Bilirubin NEGATIVE Urine Urobilinogen 0.2 (NORMAL) Ur Leukocyte Esterase TRACE H Urine RBC 0-5 Urine WBC 4-5 Urine WBC Clumps PRESENT Ur Squamous Epith Cells RARE Squamous Urine Bacteria Rare Ur Microscopic Review INDICATED Urine Culture Comments INDICATED Stl C. diff Tox B Gene 04/20/21 14:18 WBC RBC Hgb Hct MCV MCH MCHC RDW Plt Count MPV Neut # (Auto) Lymph # (Auto) [place] # (Auto) Eos # (Auto) Baso # (Auto) Absolute Nucleated RBC Nucleated RBC % Sodium Potassium Chloride Carbon Dioxide Anion Gap BUN Creatinine Estimated GFR (MDRD) Glucose Calcium Total Bilirubin AST ALT Alkaline Phosphatase Total Protein Albumin Globulin Albumin/Globulin Ratio Lipase Urine Color Urine Clarity Urine pH Ur Specific [place] Urine Protein Urine Glucose (UA) Urine Ketones Urine Occult Blood Urine Nitrite Urine Bilirubin Urine Urobilinogen Ur Leukocyte Esterase Urine RBC Urine WBC Urine WBC Clumps Ur Squamous Epith Cells Urine Bacteria Ur Microscopic Review Urine Culture Comments Stl C. diff Tox B Gene NEGATIVE - Rads (name of study) CT abd Radiology: Final report received (Chronic obstruction of the right proximal ureter by 1.6 cm ureter stone with resultant moderate to severe hydro-. However there is no delayed right nephrogram. ), Other (As the right kidney continues to function in the left kidney has focal areas of cortical loss, patient may potentially be a candidate for right percutaneous nephrostomy. Consider urological consultation) PD MEDICAL DECISION MAKING - ED course Complexity details: reviewed results, d/w patient, d/w family ED course: 76-year-old male presents emergency department for evaluation of 2 weeks diarrhea. There have been no fevers or vomiting. He denied abdominal pain. He was mostly concerned that he could have cancer. Screening labs showed no worrisome findings. In particular there is no renal failure. CT of the abdomen showed that he had a 1.6 cm obstructing proximal right ureter stone with severe hydronephrosis. Patient reports to this provider that he did have kidney stones operated on a number of years ago. However he denies back pain flank pain or hematuria. I suspect that the finding on CAT scan is likely a chronic finding and not the cause for the acute visit today which is diarrhea. However there is significant left cortical renal scarring and in the future decompression of this right kidney will be important. I have discussed this concern with the patient and his . He is advised to have very close and prompt follow-up with urology. It is likely that he needs a percutaneous nephrostomy tube to drain the kidney. If at any point his symptoms are worsening, he develops fevers, flank pain abdominal pain then he will return immediately to the ER. We will plan to write a prescription for short course of Augmentin for the diarrhea as well as lactobacillus. Departure - Departure Disposition: 01 Home, Self Care Clinical Impression: Diarrhea Qualifiers: Diarrhea type: presumed infectious Qualified Code(s): R19.7 - Diarrhea, unspecified Hydronephrosis Qualifiers: Hydronephrosis type: with ureteral calculous obstruction Qualified Code(s): N13.2 - Hydronephrosis with renal and ureteral calculous obstruction Condition: Stable Record reviewed to determine appropriate education?: Yes Follow-Up: Ce Fuller PA-C [Primary Care Provider] - Prescriptions: Lactobacillus Acidophilus [Acidophilus Lactobacilli] 1 each PO BID #20 Amox/Clav 875/125 [Augmentin] 1 each PO Q12H #10 tablet Comments: The CT scan shows that you have severe swelling in the right kidney due to an obstructing ureter stone. It also shows carring of your left kidney. Because over the long-term scarring in the left kidney and now swelling in the right kidney you are at risk develop kidney failure, though your kidney function is n ormal today. In order to help improve reduce this risk it is important that you see a urologist who may want to do a nephrostomy tube to decompress your right kidney. I have prescribed some antibiotics to help with the diarreha. If your stool culture is positive we will notify you. It is important to take lactobacillus with the antibiotics. Please discuss this ED visit with your primary care doctor as soon as possible. If at any point you have the development of back pain, vomiting develop any fevers or have a decrease in your urinary output please return immediately to the ER.
[2021-04-20 14:49] LABS: BASOPHILS # (AUTO) 0.1 10^3/uL (0.0-0.1); BASOPHILS % (AUTO) 0.7 %; EOSINOPHILS # (AUTO) 0.2 10^3/uL (0.0-0.7); EOSINOPHILS % (AUTO) 2.1 %; HCT - HEMATOCRIT 42.6 % (42.0-52.0); HGB - HEMOGLOBIN 14.2 g/dL (14.0-18.0); LYMPHOCYTES # (AUTO) 1.6 10^3/uL (1.5-3.5); MEAN CORPUSCULAR HEMOGLOBIN 31.8 pg (27.0-31.0); MEAN CORPUSCULAR HGB CONC 33.3 g/dL (32.0-36.0); MEAN CORPUSCULAR VOLUME 95.3 fL (80.0-94.0); MEAN PLATELET VOLUME 8.9 fL (7.4-11.4); MONOCYTES # (AUTO) 0.8 10^3/uL (0.0-1.0); NEUTROPHILS # (AUTO) 5.4 10^3/uL (1.5-6.6); NEUTROPHILS % (AUTO) 66.8 %; PLT - PLATELET COUNT 183 10^3/uL (130-450); RED BLOOD COUNT 4.47 10^6/uL (4.70-6.10); RED CELL DISTRIBUTION WIDTH 14.6 % (12.0-15.0)
[2021-04-20 14:59] LABS: ALBUMIN 4.2 g/dL (3.2-5.5); ALBUMIN/GLOBULIN RATIO 1.3 (1.0-2.2); BILIRUBIN,TOTAL 0.9 mg/dL (0.2-1.0); CALCIUM 9.1 mg/dL (8.5-10.3); POTASSIUM 3.9 mmol/L (3.5-5.0); TOTAL PROTEIN 7.5 g/dL (6.7-8.2)
[2021-04-20] MEDS ORDERED: IOVERSOL 320 100 ML VIAL IVP ONE ×2 (15:54→16:14)
[2021-04-20 15:57] LABS: BILIRUBIN,URINE NEGATIVE (NEGATIVE); GLUCOSE, URINE (UA) NEGATIVE (NEGATIVE); KETONES,URINE (UA) NEGATIVE (NEGATIVE); LEUKOCYTE ESTERASE, URINE TRACE (NEGATIVE); NITRITE,URINE NEGATIVE (NEGATIVE); OCCULT BLOOD,URINE NEGATIVE (NEGATIVE); PROTEIN,URINE NEGATIVE (NEGATIVE); UROBILINOGEN,URINE 0.2 (NORMAL) E.U./dL (NORMAL)
[2021-04-20 15:59] LABS: CLARITY,URINE CLEAR (CLEAR)
[2021-04-20 16:06] LABS: WBC CLUMPS,URINE PRESENT
[2021-04-20 16:07] LABS: BACTERIA,URINE Rare /HPF (None Seen); RBC,URINE 0-5 /HPF (0-5); SQUAMOUS EPITHELIAL CELL,UR RARE Squamous (<= Few)
--- NOTE | 2021-04-20 16:38 | CT Report ---
PROCEDURE: Abdomen/Pelvis W INDICATIONS: diarreha CONTRAST: IV CONTRAST: Optiray 320 ml: 100 PO CONTRAST: *NO PO CONTRAST TECHNIQUE: After the administration of intravenous contrast, 5 mm thick sections acquired from the diaphragms to the symphysis. 5 mm thick coronal and sagittal reformats were acquired. For radiation dose reducti on, the following was used: automated exposure control, adjustment of mA and/or kV according to shil[place] ent size. COMPARISON: Noncontrast CT of the abdomen and pelvis dated 06/07/2019 FINDINGS: Image quality: Excellent. ABDOMEN: Lung bases: Lung bases are clear. Heart size is normal. Solid organs: Liver and spleen are normal in size and enhancement. Gallbladder is surgically absent Biliary system is non dilated. Pancreas enhances normally. No adrenal nodules. There is chronic obstruction of the proximal right ureter by a 1.6 cm right ureteral stone. This resu lts in chronic moderate to severe hydronephrosis. However, there is no delayed right nephrogram. Ther e is probable milk of calcium in multiple calyceal structures on the right which are partially outsid e of the renal parenchyma (extrarenal pelvis). There are nonobstructing left renal stones and there i s multifocal cortical loss involving the left kidney, chronic insults. Peritoneum and bowel: Bowel l oops demonstrate normal wall thickness and caliber. Liquid colonic contents. Remote partial colonic resection. No free fluid or air. Nodes and vessels: No retroperitoneal or mesenteric adenopathy by size criteria. Remote endovascular treatment of an abdominal aortic aneurysm with an aortobiiliac bypass graft. No evidence of endoleak . The [place] lumen outside of the endograft is very small. Miscellaneous: No ventral hernias. PELVIS: Genitourinary: Bladder wall thickness is normal. Miscellaneous: No inguinal hernias or adenopathy. Bones: No suspicious bony lesions. No vertebral body compression fractures. IMPRESSION: 1. 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 However, there is no delayed right nephrogram. 2. High density structures in multiple right calyces most likely represent milk of calcium. 3. Left nephrolithiasis and focal areas of left renal cortical loss. 4. Diffusely liquid colonic contents with normal colonic wall thickness and no evidence of obstructio n. Comment: As the right kidney continues to function, and as the left kidney has focal areas of cortica l loss, patient may potentially be a candidate for right percutaneous nephrostomy. Consider urologica l consultation. Reviewed by: Erick Holder MD on 04/20/2021 3:37 PM AKDT Approved by: Erick Holder MD on 04/20/2021 3:37 PM AKANTHONY Station ID: [id number]
[2021-04-20 17:26] VITALS: BP 106/74
== END 2021-04-20 17:40 | disposition home or self-care (01) ==
LOC: ED 11:50
DX: N13.2 Hydronephrosis with renal and ureteral calculous obstruction (principal); R19.7 Diarrhea, unspecified; N28.89 Other specified disorders of kidney and ureter; F17.200 Nicotine dependence, unspecified, uncomplicated
CPT/HCPCS: 36415; 74177; 80053; 81001; 81599; 83690; 85025; 87086; 87493; 99283; 99284; Q9967; 81003; 87045; 87046

== ENCOUNTER 2021-04-25 17:25 | Emergency (ER) | payer MEDICARE ==
[2021-04-25 17:33] VITALS: BP 116/78
--- NOTE | 2021-04-25 17:53 | ED Physician Documentation ---
PD HPI WOUND RECHECK - Stated complaint Stated Complaint: FACE BLOTCHY POST DI DYE - Chief complaint Chief Complaint: Wound - Histroy obtained from History obtained from: Patient - Additional information Additional information: He was seen here on the third for diarrhea. That has since resolved. The next day he developed a burning rash on the right side of his face with shocking pain and he wonders if it might be the contrast from the CT he got. Review of Systems Constitutional: denies: Fever, Chills Eyes: denies: Loss of vision, Decreased vision Nose: denies: Rhinorrhea / runny nose Throat: denies: Sore throat PD PAST MEDICAL HISTORY - Past Medical History Cardiovascular: Hypertension, Deep vein thrombosis, Pulmonary embolism, [place], Other Respiratory: Sleep apnea, CPAP use Endocrine/Autoimmune: Type 2 diabetes GI: GERD, Other : Kidney stones HEENT: None Psych: Depression Musculoskeletal: Osteoarthritis Derm: None - Past Surgical History Past Surgical History: Yes General: Cholecystectomy - Present Medications Home Medications: Ambulatory Orders Medication Instructions Recorded Confirmed Ascorbic Acid [Vitamin C] 1,000 mg PO DAILY 03/24/13 11/27/20 Cholecalciferol (Vitamin D3) 50 mcg PO DAILY 03/24/13 11/27/20 [Vitamin D3] Multivitamin [Multivitamins] 1 each PO DAILY 03/24/13 11/27/20 Warfarin Sodium 5 mg PO DAILY 03/24/13 11/27/20 Tramadol HCl 50 mg PO TID PRN 10/08/13 11/27/20 Metoprolol Succinate 12.5 mg PO BID 04/30/15 11/27/20 Atorvastatin Calcium 40 mg PO QPM 11/27/20 11/27/20 Clopidogrel [Plavix] 75 mg PO DAILY 11/27/20 11/27/20 DULoxetine [Cymbalta] 30 mg PO DAILY 11/27/20 11/27/20 Furosemide [Lasix] 20 mg PO DAILY 11/27/20 11/27/20 lisinopriL [Prinivil] 5 mg PO DAILY 11/27/20 11/27/20 Amox/Clav 875/125 [Augmentin] 1 each PO Q12H #10 tablet 04/20/21 Lactobacillus Acidophilus 1 each PO BID #20 04/20/21 [Acidophilus Lactobacilli] Gabapentin [Neurontin] 300 mg PO TID #30 cap 04/25/21 Valacyclovir HCl [Valtrex] 2 tab PO TID #60 tablet 04/25/21 predniSONE [Deltasone] 20 mg PO [id number] #21 tab 04/25/21 - Allergies Allergies/Adverse Reactions: Allergies Allergy/AdvReac Type Severity Reaction Status Date / Time oxycodone AdvReac Hallucinati Verified 04/25/21 17:33 ons - Social History Does the pt smoke?: Yes Smoking Status: Current every day smoker Does the pt drink ETOH?: No Does the pt have substance abuse?: No - Immunizations Immunizations are current?: Yes PD ED PE NORMAL - Vitals Vital signs reviewed: Yes - General General: Alert and oriented X 3, No acute distress - HEENT HEENT: PERRL, Other (He has shingles in the right face extending from below the ear down to the chin.) - Neck Neck: Supple, no meningeal sign, No bony TTP - Neuro Neuro: Alert and oriented X 3, Normal speech Results - Vitals Vitals: Vital Signs - 24 hr 04/25/21 17:29 Temperature 37.2 C Heart Rate 70 Respiratory 16 Rate Blood Pressure 116/78 O2 Saturation 97 Oxygen O2 Source Room air Departure - Departure Disposition: 01 Home, Self Care Clinical Impression: Shingles Qualifiers: Herpes zoster complications: without complications Qualified Code(s): B02.9 - Zoster without complications Condition: Good Record reviewed to determine appropriate education?: Yes Instructions: ED Shingles Prescriptions: predniSONE [Deltasone] 20 mg PO [id number] #21 tab Gabapentin [Neurontin] 300 mg PO TID #30 cap Valacyclovir HCl [Valtrex] 2 tab PO TID #60 tablet Comments: You are seen today for shingles, the medication should help go away faster. Return for new or worsening symptoms. Do not drink or drive while taking gabap entin. Return if you develop any blurry vision.
== END 2021-04-25 18:13 | disposition home or self-care (01) ==
LOC: ED 17:25
DX: B02.9 Zoster without complications (principal); I10 Essential (primary) hypertension; E11.9 Type 2 diabetes mellitus without complications; Z86.718 Personal history of other venous thrombosis and embolism; Z86.711 Personal history of pulmonary embolism; Z79.01 Long term (current) use of anticoagulants; Z79.02 Long term (current) use of antithrombotics/antiplatelets; F17.200 Nicotine dependence, unspecified, uncomplicated
CPT/HCPCS: 99283

== ENCOUNTER 2021-06-26 08:00 | Outpatient (CLI) | payer MEDICARE | END 2021-06-26 23:59 | disposition home or self-care (01) | LOC: LAB.WCP 08:00 | PROVIDERS: ATTEND Physician Assistant Medical | DX: Z86.711 Personal history of pulmonary embolism (principal); Z79.01 Long term (current) use of anticoagulants ==

== ENCOUNTER 2021-08-14 08:00 | Outpatient (CLI) | payer MEDICARE | END 2021-08-14 23:59 | disposition home or self-care (01) | LOC: LAB.N 08:00 | PROVIDERS: ATTEND Physician Assistant Medical | DX: I21.3 ST elevation (STEMI) myocardial infarction of unspecified site (principal); I74.8 Embolism and thrombosis of other arteries; Z79.01 Long term (current) use of anticoagulants; Z86.711 Personal history of pulmonary embolism ==

== ENCOUNTER 2021-08-21 07:57 | Outpatient (CLI) | payer MEDICARE ==
[2021-08-21 11:36] LABS: ESTIMATED AVERAGE GLUCOSE 131 mg/dL (70-100); HEMOGLOBIN A1c% 6.2 % (4.27-6.07)
[2021-08-21 11:49] LABS: ALBUMIN 4.3 g/dL (3.2-5.5); ALBUMIN/GLOBULIN RATIO 1.4 (1.0-2.2); CALCIUM 9.8 mg/dL (8.5-10.3); CREATININE 0.9 mg/dL (0.6-1.2); POTASSIUM 4.6 mmol/L (3.5-5.0); TOTAL PROTEIN 7.4 g/dL (6.7-8.2)
== END 2021-08-21 07:58 | disposition home or self-care (01) ==
LOC: LAB 07:57
PROVIDERS: ATTEND Physician Assistant Medical
DX: E11.9 Type 2 diabetes mellitus without complications (principal)
CPT/HCPCS: 36415; 80053; 83036

== ENCOUNTER 2021-10-30 08:00 | Outpatient (CLI) | payer MEDICARE | END 2021-10-30 23:59 | disposition home or self-care (01) | LOC: LAB.N 08:00 | PROVIDERS: ATTEND Physician Assistant Medical | DX: Z79.01 Long term (current) use of anticoagulants (principal); Z86.711 Personal history of pulmonary embolism ==

== ENCOUNTER 2021-11-25 08:00 | Outpatient (CLI) | payer MEDICARE | END 2021-11-25 23:59 | disposition home or self-care (01) | LOC: LAB.WCP 08:00 | PROVIDERS: ATTEND Nurse Practitioner Family | DX: I21.3 ST elevation (STEMI) myocardial infarction of unspecified site (principal); Z79.01 Long term (current) use of anticoagulants; Z86.711 Personal history of pulmonary embolism ==

== ENCOUNTER 2021-12-23 08:00 | Outpatient (CLI) | payer MEDICARE | END 2021-12-23 23:59 | disposition home or self-care (01) | LOC: LAB.WCP 08:00 | PROVIDERS: ATTEND Nurse Practitioner Family | DX: I21.3 ST elevation (STEMI) myocardial infarction of unspecified site (principal); Z79.01 Long term (current) use of anticoagulants; Z86.711 Personal history of pulmonary embolism ==

== ENCOUNTER 2022-01-06 08:00 | Outpatient (CLI) | payer MEDICARE | END 2022-01-06 23:59 | disposition home or self-care (01) | LOC: LAB.WCP 08:00 | PROVIDERS: ATTEND Physician Assistant Medical | DX: I21.3 ST elevation (STEMI) myocardial infarction of unspecified site (principal); Z85.828 Personal history of other malignant neoplasm of skin; Z79.01 Long term (current) use of anticoagulants; Z86.711 Personal history of pulmonary embolism ==

== ENCOUNTER 2022-02-03 08:00 | Outpatient (CLI) | payer MEDICARE | END 2022-02-03 23:59 | disposition home or self-care (01) | LOC: LAB.WCP 08:00 | PROVIDERS: ATTEND Physician Assistant Medical | DX: I21.3 ST elevation (STEMI) myocardial infarction of unspecified site (principal); I74.8 Embolism and thrombosis of other arteries; Z79.01 Long term (current) use of anticoagulants; Z86.711 Personal history of pulmonary embolism ==

== ENCOUNTER 2022-02-20 10:59 | Outpatient (CLI) | payer MEDICARE ==
[2022-02-20 18:49] LABS: ALBUMIN 4.1 g/dL (3.2-5.5); ALBUMIN/GLOBULIN RATIO 1.3 (1.0-2.2); ALKALINE PHOSPHATASE 63 IU/L (42-121); ALT ALANINE AMINOTRANSFERASE 24 IU/L (10-60); AST ASPARTATE AMINOTRANSFERASE 25 IU/L (10-42); BILIRUBIN,TOTAL 0.8 mg/dL (0.2-1.0); BUN - BLOOD UREA NITROGEN 22 mg/dL (6-20); CALCIUM 9.6 mg/dL (8.5-10.3); CARBON DIOXIDE - CO2 26 mmol/L (21-32); CHLORIDE 106 mmol/L (101-111); CHOLESTEROL 86 mg/dL; CREATININE 1.1 mg/dL (0.6-1.2); GFR - MDRD 65 (>89); GLUCOSE 139 mg/dL (70-100); HDL CHOLESTEROL 29 mg/dL; LDL CHOLESTEROL,CALCULATED 44 mg/dL; LDL/HDL RATIO 1.5 (<3.6); POTASSIUM 4.7 mmol/L (3.5-5.0); SODIUM 142 mmol/L (135-145); TOTAL PROTEIN 7.3 g/dL (6.7-8.2); TRIGLYCERIDES 66 mg/dL; VLDL CHOLESTEROL 13 mg/dL
[2022-02-20 21:06] LABS: ESTIMATED AVERAGE GLUCOSE 134 mg/dL (70-100); HEMOGLOBIN A1c% 6.3 % (4.27-6.07)
== END 2022-02-20 11:00 | disposition home or self-care (01) ==
LOC: LAB.N 10:59
PROVIDERS: ATTEND Physician Assistant Medical
DX: E11.9 Type 2 diabetes mellitus without complications (principal)
CPT/HCPCS: 36415; 80053; 80061; 83036; 83721

== ENCOUNTER 2022-03-24 08:00 | Outpatient (CLI) | payer MEDICARE | END 2022-03-24 23:59 | disposition home or self-care (01) | LOC: LAB.N 08:00 | PROVIDERS: ATTEND Physician Assistant Medical | DX: Z79.01 Long term (current) use of anticoagulants (principal); Z86.711 Personal history of pulmonary embolism ==

== ENCOUNTER 2022-04-14 08:00 | Outpatient (CLI) | payer MEDICARE | END 2022-04-14 23:59 | disposition home or self-care (01) | LOC: LAB.WCP 08:00 | PROVIDERS: ATTEND Physician Assistant | DX: Z86.711 Personal history of pulmonary embolism (principal); Z79.01 Long term (current) use of anticoagulants ==

== ENCOUNTER 2022-05-12 08:00 | Outpatient (CLI) | payer MEDICARE | END 2022-05-12 08:01 | disposition home or self-care (01) | LOC: LAB.N 08:00 | PROVIDERS: ATTEND Physician Assistant Medical | DX: I74.2 Embolism and thrombosis of arteries of the upper extremities (principal); Z79.01 Long term (current) use of anticoagulants; Z86.711 Personal history of pulmonary embolism ==

== ENCOUNTER 2022-06-16 08:00 | Outpatient (CLI) | payer MEDICARE | END 2022-06-16 08:01 | disposition home or self-care (01) | LOC: LAB.N 08:00 | PROVIDERS: ATTEND Physician Assistant Medical | DX: I21.3 ST elevation (STEMI) myocardial infarction of unspecified site (principal); I74.8 Embolism and thrombosis of other arteries; Z79.01 Long term (current) use of anticoagulants; Z86.711 Personal history of pulmonary embolism ==

== ENCOUNTER 2022-08-11 08:00 | Outpatient (CLI) | payer MEDICARE | END 2022-08-11 23:59 | disposition home or self-care (01) | LOC: LAB.WCP 08:00 | PROVIDERS: ATTEND Family Medicine | DX: I21.3 ST elevation (STEMI) myocardial infarction of unspecified site (principal); Z79.01 Long term (current) use of anticoagulants; Z86.711 Personal history of pulmonary embolism ==

== ENCOUNTER 2022-09-01 08:22 | Outpatient (CLI) | payer MEDICARE ==
[2022-09-01 12:50] LABS: ALBUMIN 4.1 g/dL (3.2-5.5); ALBUMIN/GLOBULIN RATIO 1.3 (1.0-2.2); ALKALINE PHOSPHATASE 56 IU/L (42-121); ALT ALANINE AMINOTRANSFERASE 32 IU/L (10-60); AST ASPARTATE AMINOTRANSFERASE 27 IU/L (10-42); BILIRUBIN,TOTAL 0.8 mg/dL (0.2-1.0); BUN - BLOOD UREA NITROGEN 25 mg/dL (6-20); CALCIUM 9.8 mg/dL (8.5-10.3); CARBON DIOXIDE - CO2 31 mmol/L (21-32); CHLORIDE 102 mmol/L (101-111); CHOLESTEROL 94 mg/dL; CREATININE 1.1 mg/dL (0.6-1.2); GFR - MDRD 65 (>89); GLUCOSE 151 mg/dL (70-100); HDL CHOLESTEROL 31 mg/dL; LDL CHOLESTEROL,CALCULATED 48 mg/dL; LDL/HDL RATIO 1.5 (<3.6); POTASSIUM 4.5 mmol/L (3.5-5.0); SODIUM 138 mmol/L (135-145); TOTAL PROTEIN 7.3 g/dL (6.7-8.2); TRIGLYCERIDES 75 mg/dL; VLDL CHOLESTEROL 15 mg/dL
[2022-09-01 14:05] LABS: ESTIMATED AVERAGE GLUCOSE 148 mg/dL (70-100); HEMOGLOBIN A1c% 6.8 % (4.27-6.07)
== END 2022-09-01 08:23 | disposition home or self-care (01) ==
LOC: LAB.N 08:22
PROVIDERS: ATTEND Physician Assistant Medical
DX: E11.9 Type 2 diabetes mellitus without complications (principal)
CPT/HCPCS: 36415; 80053; 80061; 83036; 83721

== ENCOUNTER → 2022-09-08 | Outpatient (CLI) | payer MEDICARE | LOC: LAB.WCP 08:00 | PROVIDERS: ATTEND Family Medicine | DX: I74.8 Embolism and thrombosis of other arteries (principal); Z79.01 Long term (current) use of anticoagulants; Z86.711 Personal history of pulmonary embolism ==

== ENCOUNTER 2022-09-14 11:32 | Emergency (ER) | payer MEDICARE ==
[2022-09-14 12:37] LABS: BASOPHILS # (AUTO) 0.1 10^3/uL (0.0-0.1); BASOPHILS % (AUTO) 0.6 %; EOSINOPHILS # (AUTO) 0.1 10^3/uL (0.0-0.7); EOSINOPHILS % (AUTO) 1.4 %; HCT - HEMATOCRIT 46.8 % (42.0-52.0); LYMPHOCYTES # (AUTO) 1.3 10^3/uL (1.5-3.5); LYMPHOCYTES % (AUTO) 12.8 %; MEAN CORPUSCULAR HEMOGLOBIN 31.3 pg (27.0-31.0); MEAN CORPUSCULAR HGB CONC 32.1 g/dL (32.0-36.0); MEAN CORPUSCULAR VOLUME 97.5 fL (80.0-94.0); MEAN PLATELET VOLUME 8.5 fL (7.4-11.4); NEUTROPHILS # (AUTO) 7.5 10^3/uL (1.5-6.6); NEUTROPHILS % (AUTO) 74.9 %; PLT - PLATELET COUNT 123 10^3/uL (130-450); RED CELL DISTRIBUTION WIDTH 14.5 % (12.0-15.0)
[2022-09-14 12:54] LABS: ALBUMIN 4.2 g/dL (3.2-5.5); ALBUMIN/GLOBULIN RATIO 1.3 (1.0-2.2); BILIRUBIN,TOTAL 0.8 mg/dL (0.2-1.0); CALCIUM 9.8 mg/dL (8.5-10.3); CREATININE 1.2 mg/dL (0.6-1.2); POTASSIUM 4.9 mmol/L (3.5-5.0); TOTAL PROTEIN 7.5 g/dL (6.7-8.2)
[2022-09-14 13:35] LABS: BILIRUBIN,URINE NEGATIVE (NEGATIVE); GLUCOSE, URINE (UA) NEGATIVE (NEGATIVE); KETONES,URINE (UA) NEGATIVE (NEGATIVE); LEUKOCYTE ESTERASE, URINE NEGATIVE (NEGATIVE); NITRITE,URINE NEGATIVE (NEGATIVE); OCCULT BLOOD,URINE SMALL (NEGATIVE); PH,URINE 6.5 PH (5.0-7.5); PROTEIN,URINE NEGATIVE (NEGATIVE); UROBILINOGEN,URINE 0.2 (NORMAL) E.U./dL (NORMAL)
[2022-09-14 13:40] LABS: CLARITY,URINE CLEAR (CLEAR)
[2022-09-14 13:54] LABS: BACTERIA,URINE None Seen /HPF (None Seen); SQUAMOUS EPITHELIAL CELL,UR RARE Squamous (<= Few)
--- NOTE | 2022-09-14 14:07 | ED Physician Documentation ---
History of Present Illness - Stated complaint Stated Complaint: LOWER BACK LEFT SIDE - Chief complaint Chief Complaint: Abd Pain - History obtained from History obtained from: Patient - Additonal information Additional information: This is a very pleasant 77-year-old gentleman who presents with left-sided lower back pain which started yesterday and has somewhat increased today. He states it feels like its deep inside the left lower back, not associated with any lifting, twisting or back injury. He has no dysuria, urgency or frequency or difficulty passing urine, No fever,no nausea or vomiting, no chest pain or difficulty breathing. He has no saddle anesthesia, no weakness in the legs or radiation of pain down the legs. Patient does recall a past history of right renal stones and states he lots saw his urologist in around May of this year at which time he "had a good bill of health for my kidneys." He states he has not been taking any medication For pain relief. Review of Systems Ten Systems: 10 systems reviewed and negative (Except as noted in HPI) PD PAST MEDICAL HISTORY - Past Medical History Past Medical History: Yes Cardiovascular: Hypertension, Deep vein thrombosis, Pulmonary embolism, [place], Other Respiratory: Sleep apnea, CPAP use Endocrine/Autoimmune: Type 2 diabetes GI: GERD, Other : Kidney stones HEENT: None Psych: Depression Musculoskeletal: Osteoarthritis Derm: None - Past Surgical History Past Surgical History: Yes General: Cholecystectomy - Present Medications Home Medications: Ambulatory Orders Medication Instructions Recorded Confirmed Ascorbic Acid [Vitamin C] 1,000 mg PO DAILY 03/24/13 11/27/20 Cholecalciferol (Vitamin D3) 50 mcg PO DAILY 03/24/13 11/27/20 [Vitamin D3] Multivitamin [Multivitamins] 1 each PO DAILY 03/24/13 11/27/20 Warfarin Sodium 5 mg PO DAILY 03/24/13 11/27/20 Tramadol HCl 50 mg PO TID PRN 10/08/13 11/27/20 Metoprolol Succinate 12.5 mg PO BID 04/30/15 11/27/20 Atorvastatin Calcium 40 mg PO QPM 11/27/20 11/27/20 Clopidogrel [Plavix] 75 mg PO DAILY 11/27/20 11/27/20 DULoxetine [Cymbalta] 30 mg PO DAILY 11/27/20 11/27/20 Furosemide [Lasix] 20 mg PO DAILY 11/27/20 11/27/20 lisinopriL [Prinivil] 5 mg PO DAILY 11/27/20 11/27/20 Amox/Clav 875/125 [Augmentin] 1 each PO Q12H #10 tablet 04/20/21 Lactobacillus Acidophilus 1 each PO BID #20 04/20/21 [Acidophilus Lactobacilli] Gabapentin [Neurontin] 300 mg PO TID #30 cap 04/25/21 Valacyclovir HCl [Valtrex] 2 tab PO TID #60 tablet 04/25/21 predniSONE [Deltasone] 20 mg PO [id number] #21 tab 04/25/21 HYDROcod/ACETAM 5/325 [Geraldine 5/325] 1 tab PO Q6H PRN #12 tablet 09/14/22 Tamsulosin HCl [Flomax] 0.4 mg PO DAILY #30 cap 09/14/22 - Allergies Allergies/Adverse Reactions: Allergies Allergy/AdvReac Type Severity Reaction Status Date / Time oxycodone AdvReac Hallucinati Verified 09/14/22 12:24 ons - Social History Does the pt smoke?: Yes Smoking Status: Current every day smoker Does the pt drink ETOH?: No Does the pt have substance abuse?: No - Immunizations Immunizations are current?: Yes PD ED PE NORMAL - Vitals Vital signs reviewed: Yes - General General: Alert and oriented X 3, No acute distress, Well developed/nourished - HEENT HEENT: Atraumatic, Moist mucous membranes, Pharynx benign - Cardiac Cardiac: RRR, No murmur - Respiratory Respiratory: No respiratory distress, Clear bilaterally - Abdomen Abdomen: Normal bowel sounds, Soft, Non tender, Non distended - Derm Derm: Normal color, Warm and dry, No rash - Extremities Extremities: No deformity, No edema - Neuro Neuro: Alert and oriented X 3 Eye Opening: Spontaneous Motor: Obeys Commands Verbal: Oriented GCS Score: 15 - Psych Psych: Normal mood, Normal affect Results - Vitals Vitals: Vital Signs - 24 hr 09/14/22 09/14/22 12:19 15:34 Temperature 36.5 C Heart Rate 70 82 Respiratory 20 21 Rate Blood Pressure 111/66 141/79 H O2 Saturation 94 95 Oxygen O2 Source Room air - Labs Labs: Laboratory Tests 09/14/22 09/14/22 09/14/22 12:23 12:30 12:30 WBC 10.0 RBC 4.80 Hgb 15.0 Hct 46.8 MCV 97.5 H MCH 31.3 H MCHC 32.1 RDW 14.5 Plt Count 123 L MPV 8.5 Neut # (Auto) 7.5 H Lymph # (Auto) 1.3 L Clinch # (Auto) 1.0 Eos # (Auto) 0.1 Baso # (Auto) 0.1 Absolute Nucleated RBC 0.00 Nucleated RBC % 0.0 Sodium 140 Potassium 4.9 Chloride 102 Carbon Dioxide 29 Anion Gap 9.0 BUN 22 H Creatinine 1.2 Estimated GFR (MDRD) 59 L Glucose 111 H Calcium 9.8 Total Bilirubin 0.8 AST 23 ALT 22 Alkaline Phosphatase 62 Total Protein 7.5 Albumin 4.2 Globulin 3.3 Albumin/Globulin Ratio 1.3 Lipase 34 Urine Color YELLOW Urine Clarity CLEAR Urine pH 6.5 Ur Specific [place] 1.015 Urine Protein NEGATIVE Urine Glucose (UA) NEGATIVE Urine Ketones NEGATIVE Urine Occult Blood SMALL H Urine Nitrite NEGATIVE Urine Bilirubin NEGATIVE Urine Urobilinogen 0.2 (NORMAL) Ur Leukocyte Esterase NEGATIVE Urine RBC 11-25 H Urine WBC 6-10 H Ur Squamous Epith Cells RARE Squamous Urine Bacteria None Seen Ur Microscopic Review INDICATED Urine Culture Comments NOT INDICATED PD MEDICAL DECISION MAKING - ED course Complexity details: reviewed results, re-evaluated patient, considered differential, d/w patient, d/w family ED course: This is a pleasant 77-year-old male with a past medical history of right-sided renal and ureteral stones who presents with left lower back pain for the last couple of days. The patient is well-appearing on physical exam, he has no midline spine tenderness, no signs of saddle anesthesia or cauda equina syndrome and has no trauma to the area. He has no CVAT and no signs of systemic infection. His urinalysis is not infected, does show some small amount of blood, CBC and CMP are reassuring. Given patient's history of kidney stones, I did suspect the patient had a kidney stone therefore obtain a CT abdomen pelvis which shows a 4 mm stone that is nonobstructing around the UVJ. No other acute findings. I discussed with patient and the stone may pass on its own, encourage hydration we will start on Flomax and patient should take NSAIDs as tolerated, he was given Geraldine for breakthrough pain. He was advised that if there is no improvement in 5 to 10 days to follow-up with his urologist or return to the ER if he is worsening symptoms such as fever, increasing pain, difficulty uri nating, vomiting or other concerns. Departure - Departure Disposition: 01 Home, Self Care Clinical Impression: Left ureteral calculus Condition: Good Instructions: ED Stone Renal W Colic Prescriptions: Tamsulosin HCl [Flomax] 0.4 mg PO DAILY #30 cap HYDROcod/ACETAM 5/325 [Geraldine 5/325] 1 tab PO Q6H PRN #12 tablet PRN Reason: Pain Comments: Your CT scan shows that you have a small left-sided ureteral stone. This 1 is small left that it should likely pass on its own at this time there is no sign of infection to warrant emergent removal. Thus we recommend that you take ibuprofen as needed for pain, Flomax and stay well-hydrated. He may follow-up with urologist if no improvement in next 5 to 10 days or return to the ER at any point time if worsening. Discharge Date/Time: 09/14/22 15:34
--- NOTE | 2022-09-14 15:16 | CT Report ---
PROCEDURE: an INDICATIONS: left flank pain, r/o renal stone please TECHNIQUE: Noncontrast 5 mm thick sections acquired from the diaphragms to the symphysis. 5 mm coronal and sagi ttal reformats were then performed. For radiation dose reduction, the following was used: automated exposure control, adjustment of mA and/or kV according to patient size. COMPARISON: CT of abdomen and pelvis with, 04/20/2021. FINDINGS: Image quality: Excellent. ABDOMEN: Lung bases: There is a 4 mm subpleural nodule in the left lower lobe (series 4 image 4). Heart size is normal. Small hiatal hernia. Solid organs: There is a 4 mm stone in the distal left ureter near the left UVJ measuring [address] density. There is trace left renal pelviectasis and mild perinephric stranding. Mult iple renal calculi are seen bilaterally. There is a staghorn tone in left kidney measuring 0.7 x 1.[address] density 668 Houn[address]field units. Smaller stones are seen bilaterally. Liver and spleen are normal in size. Gallbladder is surgically absent Pancreas is normal in contour s. No adrenal thickening and nodularity bilaterally. Kidneys are normal in size, without hydronephros is or nephrolithiasis. Peritoneum and bowel: There are postsurgical changes in right colon. Unenhanced bowel loops demonstr ate normal wall thickness and caliber. Diverticulosis without acute diverticulitis. No free fluid or air. Nodes and vessels: No retroperitoneal or mesenteric adenopathy by size criteria. There is abdominal aortic aneurysm measuring up to 4.3 cm in diameter. There is a bifid endoluminal graft within the aor ta. Severe atherosclerosis of the renal arteries bilaterally. Miscellaneous: No ventral hernias. PELVIS: Genitourinary: Bladder wall may be mildly thickened but bladder is not fully distended. Prostate is mildly enlarged. Miscellaneous: No inguinal hernias or adenopathy. Bones: No suspicious bony lesions. No vertebral body compression fractures. Scoliosis and degenera tive changes in lumbar spine. IMPRESSION: 1. There is a 4 mm nonobstructive stone in the distal left ureter near the UVJ. There is mild left re nal pelviectasis. 2. Nephrolithiasis bilaterally with multiple nonobstructive renal calculi. No right hydronephrosis. 3. Abdominal aortic aneurysm with an intraluminal graft. 4. Diverticulosis without acute diverticulitis. 5. A 4 mm subpleural nodule in the left lower lobe. Please see enclosed follow-up recommendation. Fleischner Society criteria for SOLID lung nodule followup. Nodule size (mm)Low-risk patientHigh-risk patient "d4No follow-up neededFollow-up at 12 mo; if no change, no further follow-up >[id number]-[id number] CT at 12 mo; if no change, no further follow-up needed.Initial follow-up CT at 6-12 mo, then 18-24 mo if no change. >6-8Initial follow-up CT at 6-12 mo, then 18-24 mo if no change. Initial follow-up CT at 3-6 mo, then 9-12 mo and 24 mo if no change. >8Follow-up CT at 3, 9, 24 mo. Or PET and/or biopsy.Same as for low-risk pts. Reviewed by: Anusha Arenas MD on 09/14/2022 3:14 PM PST Approved by: Anusha Arenas MD on 09/14/2022 3:14 PM PST Station ID: [id number]
[2022-09-14 15:34] VITALS: BP 141/79
== END 2022-09-14 15:34 | disposition home or self-care (01) ==
LOC: ED 11:32
DX: N20.1 Calculus of ureter (principal); Z87.442 Personal history of urinary calculi; I10 Essential (primary) hypertension; E11.9 Type 2 diabetes mellitus without complications; I25.2 Old myocardial infarction; G47.30 Sleep apnea, unspecified; F17.200 Nicotine dependence, unspecified, uncomplicated
CPT/HCPCS: 36415; 80053; 81001; 81003; 83690; 85025; 87086; 99283; 99284

== ENCOUNTER 2022-09-22 08:00 | Outpatient (CLI) | payer MEDICARE | END 2022-09-22 08:01 | disposition home or self-care (01) | LOC: LAB.WCP 08:00 | PROVIDERS: ATTEND Family Medicine | DX: I21.3 ST elevation (STEMI) myocardial infarction of unspecified site (principal); I74.8 Embolism and thrombosis of other arteries; Z79.01 Long term (current) use of anticoagulants; Z86.711 Personal history of pulmonary embolism ==

== ENCOUNTER → 2022-10-22 | Outpatient (CLI) | payer MEDICARE | LOC: LAB.WCP 08:00 | PROVIDERS: ATTEND Family Medicine | DX: I21.3 ST elevation (STEMI) myocardial infarction of unspecified site (principal); I74.8 Embolism and thrombosis of other arteries; Z79.01 Long term (current) use of anticoagulants; Z86.711 Personal history of pulmonary embolism ==

== ENCOUNTER 2022-11-05 08:00 | Outpatient (CLI) | payer MEDICARE | END 2022-11-05 23:59 | disposition home or self-care (01) | LOC: LAB.N 08:00 | PROVIDERS: ATTEND Physician Assistant Medical | DX: I74.8 Embolism and thrombosis of other arteries (principal); Z79.01 Long term (current) use of anticoagulants; Z86.711 Personal history of pulmonary embolism ==

== ENCOUNTER 2022-12-03 08:00 | Outpatient (CLI) | payer MEDICARE | END 2022-12-03 23:59 | disposition home or self-care (01) | LOC: LAB.WCP 08:00 | PROVIDERS: ATTEND Family Medicine | DX: I74.8 Embolism and thrombosis of other arteries (principal); Z79.01 Long term (current) use of anticoagulants; Z86.711 Personal history of pulmonary embolism ==

== ENCOUNTER 2022-12-24 08:00 | Outpatient (CLI) | payer MEDICARE | END 2022-12-24 23:59 | disposition home or self-care (01) | LOC: LAB.WCP 08:00 | PROVIDERS: ATTEND Family Medicine | DX: I74.8 Embolism and thrombosis of other arteries (principal); Z79.01 Long term (current) use of anticoagulants; Z86.711 Personal history of pulmonary embolism ==

== ENCOUNTER 2023-03-02 08:17 | Outpatient (CLI) | payer MEDICARE ==
[2023-03-02 12:02] LABS: ALBUMIN 4.1 g/dL (3.2-5.5); ALBUMIN/GLOBULIN RATIO 1.1 (1.0-2.2); ALKALINE PHOSPHATASE 65 IU/L (42-121); ALT ALANINE AMINOTRANSFERASE 24 IU/L (10-60); AST ASPARTATE AMINOTRANSFERASE 22 IU/L (10-42); BILIRUBIN,TOTAL 0.7 mg/dL (0.2-1.0); BUN - BLOOD UREA NITROGEN 19 mg/dL (6-20); CALCIUM 9.1 mg/dL (8.5-10.3); CARBON DIOXIDE - CO2 28 mmol/L (21-32); CHLORIDE 105 mmol/L (101-111); CHOL/HDL RATIO 2.8 (<5.0); CHOLESTEROL 85 mg/dL; CREATININE 1.1 mg/dL (0.6-1.2); GFR - MDRD 65 (>89); GLUCOSE 104 mg/dL (70-100); HDL CHOLESTEROL 30 mg/dL; LDL CHOLESTEROL,CALCULATED 44 mg/dL; LDL/HDL RATIO 1.5 (<3.6); POTASSIUM 4.8 mmol/L (3.5-5.0); SODIUM 138 mmol/L (135-145); TOTAL PROTEIN 7.8 g/dL (6.7-8.2); TRIGLYCERIDES 53 mg/dL; VLDL CHOLESTEROL 11 mg/dL
[2023-03-02 19:42] LABS: ESTIMATED AVERAGE GLUCOSE 140 mg/dL (70-100); HEMOGLOBIN A1c% 6.5 % (4.27-6.07)
== END 2023-03-02 08:18 | disposition home or self-care (01) ==
LOC: LAB.N 08:17
PROVIDERS: ATTEND Physician Assistant Medical
DX: E11.9 Type 2 diabetes mellitus without complications (principal)
CPT/HCPCS: 36415; 80053; 80061; 83036; 83721

== ENCOUNTER 2023-03-24 09:59 | Outpatient (CLI) | payer MEDICARE ==
--- NOTE | 2023-03-24 14:08 | Ultrasound Report ---
PROCEDURE: Ankle Brachial Index INDICATIONS: PVD. Patient states he has a left SFA stent. TECHNIQUE: Ankle-brachial indices were obtained bilaterally and recorded. COMPARISONS: None. FINDINGS: Right ankle brachial index (MENDEZ): 0.84 Left ankle brachial index (MENDEZ): 0.96 Healing potential: Ankle pressures >55 mm Hg in non-diabetics and >80 mm Hg in diabetics are likely to achieve primary h ealing of ischemic foot ulcers. Toe pressures >30 mm Hg are likely to achieve primary healing of ischemic foot ulcers, toe or transme tatarsal amputations. IMPRESSION: 1. Resting left MENDEZ within normal limits. Resting right MENDEZ is mildly diminished, in the possible cla udication range. Comment: Consider duplex bilateral lower extremity arterial ultrasound in this individual. Reviewed by: Erick Holder MD on 03/24/2023 2:07 PM PDT Approved by: Erick Holder MD on 03/24/2023 2:07 PM PDT Station ID: [id number]
== END 2023-03-24 10:00 | disposition home or self-care (01) ==
LOC: DI 09:59
PROVIDERS: ATTEND Physician Assistant Medical
DX: I73.9 Peripheral vascular disease, unspecified (principal); R94.39 Abnormal result of other cardiovascular function study
CPT/HCPCS: 93922

== ENCOUNTER 2023-04-02 16:39 | Outpatient (CLI) | payer MEDICARE ==
--- NOTE | 2023-04-03 11:20 | Ultrasound Report ---
PROCEDURE: Duplex Lwr Ext Arterial Bilat INDICATIONS: PVD TECHNIQUE: Color and pulse Doppler interrogation was performed of both lower extremity arterial systems, with im age documentation. COMPARISON: CT abdomen and pelvis with contrast dated 04/20/2021. FINDINGS: On the previous CT, it is noted that patients status post remote endovascular repair of an abdominal aortic aneurysm. At that time, both iliac limbs and the remainder of the iliacs and common femorals w ere patent. Right lower extremity: Common femoral artery: 103.2 cm/sec, with biphasic flow. Deep femoral artery: 72.2 cm/sec, with biphasic flow. Proximal superficial femoral artery: 69.0 cm/sec, with biphasic flow. Mid superficial femoral artery: 100.6 cm/sec, with monophasic flow. Distal superficial femoral artery: 40.4 cm/sec, with monophasic flow. Popliteal artery: 50.9 cm/sec, with monophasic flow. Posterior tibial artery: 49.3 cm/sec, with monophasic flow. Anterior tibial artery/dorsalis pedis: 42.6/63.3 cm/sec, with monophasic/monophasic flow. [place]-scale imaging description: Mild plaque. No significant stenosis identified. Left lower extremity: Common femoral artery: 132.2 cm/sec, with biphasic flow. Deep femoral artery: 68.3 cm/sec, with biphasic flow. Proximal superficial femoral artery: 73.9 cm/sec, with triphasic flow. Mid superficial femoral artery: 88.2 cm/sec, with triphasic flow. Distal superficial femoral artery: 78.9 cm/sec, with triphasic flow. Popliteal artery: 67.1 cm/sec, with biphasic flow. Posterior tibial artery: 80.1 cm/sec, with triphasic flow. Anterior tibial artery/dorsalis pedis: 71.4/53.8 cm/sec, with biphasic/triphasic flow. [place]-scale imaging description: Mild plaque no significant stenosis. IMPRESSION: 1. There is no significant stenosis identified in either lower extremity arterial tree. However, on t he right, below the level of the proximal SFA, all vessels have monophasic flow. Comment: Theoretically, there may potentially be an inflow stenosis on the right. Consider CT angiogr aphy to evaluate whether there may be a narrowing within the right iliac limb of the endograft. Reviewed by: Erick Holder MD on 04/03/2023 11:19 AM PDT Approved by: Erick Holder MD on 04/03/2023 11:19 AM PDT Station ID: [id number]
== END 2023-04-02 16:40 | disposition home or self-care (01) ==
LOC: DI 16:39
PROVIDERS: ATTEND Family Medicine
DX: I73.9 Peripheral vascular disease, unspecified (principal)
CPT/HCPCS: 93925

== ENCOUNTER 2023-04-15 07:58 | Outpatient (CLI) | payer MEDICARE ==
[2023-04-15 08:24] LABS: CREATININE 1.2 mg/dL (0.6-1.2)
[2023-04-15] MEDS ORDERED: iohexoL-300 100 ML VIAL ONE (08:32)
[2023-04-15] MEDS ORDERED: iohexoL-300 100 ML VIAL IVP ONE (10:16)
--- NOTE | 2023-04-15 11:29 | CT Report ---
PROCEDURE: ANGIO ABD RUNOFF W/WO - B/L INDICATIONS: REPAIRED THORACIC AORTIC ANEURYSM, PVD CONTRAST: 125ml Omni 300 TECHNIQUE: After the administration of intravenous contrast, a CT scan of the abdomen, pelvis and lower extremit ies (to the feet) was performed. Images were recorded and evaluated at appropriate window settings. R eformats: coronal and sagittal. For radiation dose reduction, the following was used: automated expos ure control, adjustment of mA and/or kV according to patient size. COMPARISON: CT abdomen and pelvis without contrast dated 09/14/2022, duplex arterial study dated 03/19 FINDINGS: Image quality: Excellent. Abdominal aorta: Remote endovascular repair of an abdominal aortic aneurysm. No type I or type II en doleak. Minimal residual excluded aneurysm sac. 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 The ABDIEL is occluded at its origin. Right lower extremity: Common iliac artery: Endovascular stent graft. Patent. External iliac artery: No significant atherosclerotic disease. Common femoral artery: Atherosclerotic calcifications. No stenosis. There is either a small saccular thrombosed aneurysm or pseudoaneurysm off the posterior aspect of the distal common femoral, or it is a small profunda branch aneurysm which is predominantly thrombosed.. It measures 1.3 cm. Superficial femoral artery: There is a chronic short segment occlusion of the mid SFA with well forme d collaterals present. The occlusion measures approximately 5 or 6 cm in length. Popliteal artery: No significant atherosclerotic disease. Anterior tibial artery: Patent Peroneal artery: Small caliber. Posterior tibial artery: Patent. Left lower extremity: Right lower extremity: Common iliac artery: Endovascular stent graft. Patent. External iliac artery: No significant atherosclerotic disease. Common femoral artery: No significant atherosclerotic disease. Superficial femoral artery: Atherosclerotic calcifications. No significant stenosis. Popliteal artery: No significant atherosclerotic disease. Anterior tibial artery: Patent Peroneal artery: Patent Posterior tibial artery: Patent OTHER: Lung bases and heart: Unremarkable. Liver: No solid mass. Gallbladder and biliary tree: Surgically absent. No biliary dilation, accounting for post-cholecystec mindi state. Spleen: No splenomegaly. Pancreas: No pancreatic ductal dilation. Adrenals: No adrenal nodule. Kidneys and ureters: The left kidney contains multiple sizable stones. There are multiple areas of si gnificant focal cortical volume loss. The right kidney contains stones as well as focal areas of miguelito ical volume loss. Bowel and peritoneum: No bowel distension. No pathologic free fluid. Lymph nodes: No central or retroperitoneal adenopathy. Vessels: No infrarenal aortic aneurysm. Reproductive organs: Unremarkable. Bladder: No abnormal wall thickening, accounting for underdistention. Pelvic lymph nodes: No pelvic adenopathy by size criteria. Bones: No aggressive osseous abnormality. Other: No significant ventral or inguinal hernia. IMPRESSION: 1. There has been remote endovascular repair of an abdominal aortic aneurysm. No significant residual aneurysm sac. Patent stent graft. 2. Right lower extremity runoff significant for short segment chronic occlusion of the mid SFA. Other varela, there is no significant stenotic disease noted. 3. Left lower extremity runoff significant for 3 patent runoff vessels and no significant stenotic di sease. 4. 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 The re is chronic occlusion of the SMA approximately 5 cm beyond its origin. There is extensive collatera l formation. There is occlusion of the ABDIEL origin. These findings and total may potentially be asympt omatic. However, patients with this anatomy can experience symptoms of chronic mesenteric ischemia. R ecommend clinical correlation. 5. Extensive bilateral nephrolithiasis with multiple focal areas of renal cortical volume loss. 6. Remote cholecystectomy. 7. Question small mostly thrombosed 1.3 cm pseudoaneurysm off the posterior aspect of the distal comm on femoral artery versus focal mostly thrombosed small aneurysm of a branch of the profunda. Reviewed by: Erick Holder MD on 04/15/2023 11:28 AM PDT Approved by: Erick Holder MD on 04/15/2023 11:28 AM PDT Station ID: [id number]
== END 2023-04-15 07:59 | disposition home or self-care (01) ==
LOC: LAB 07:58
PROVIDERS: ATTEND Family Medicine
DX: Z86.79 Personal history of other diseases of the circulatory system (principal); I70.201 Unspecified atherosclerosis of native arteries of extremities, right leg; I77.4 Celiac artery compression syndrome; K55.069 Acute infarction of intestine, part and extent unspecified; N20.0 Calculus of kidney; N26.1 Atrophy of kidney (terminal); Z90.49 Acquired absence of other specified parts of digestive tract
CPT/HCPCS: 36415; 75635; 82565; Q9967

== ENCOUNTER 2023-05-22 21:20 | Outpatient (CLI) | payer MEDICARE | END 2023-05-22 23:59 | disposition EMS.NT | LOC: EMS 21:20 | DX: Z03.89 Encounter for observation for other suspected diseases and conditions ruled out (principal); Z79.01 Long term (current) use of anticoagulants ==

== ENCOUNTER 2023-07-29 08:00 | Outpatient (CLI) | payer MEDICARE | END 2023-07-29 23:59 | disposition home or self-care (01) | LOC: LAB.WCP 08:00 | PROVIDERS: ATTEND Physician Assistant Medical | DX: I74.8 Embolism and thrombosis of other arteries (principal); Z79.01 Long term (current) use of anticoagulants; Z86.711 Personal history of pulmonary embolism ==

== ENCOUNTER 2023-08-12 08:00 | Outpatient (CLI) | payer MEDICARE | END 2023-08-12 23:59 | disposition home or self-care (01) | LOC: LAB.WCP 08:00 | PROVIDERS: ATTEND Physician Assistant Medical | DX: I74.8 Embolism and thrombosis of other arteries (principal); Z79.01 Long term (current) use of anticoagulants; Z86.711 Personal history of pulmonary embolism ==

== ENCOUNTER 2023-11-19 11:43 | Outpatient (CLI) | payer MEDICARE | END 2023-11-19 23:59 | disposition short-term general hospital (02) | LOC: EMS 11:43 | DX: K92.1 Melena (principal); Z99.81 Dependence on supplemental oxygen; Z79.01 Long term (current) use of anticoagulants; Z79.82 Long term (current) use of aspirin | CPT/HCPCS: A0425; A0429 ==

== ENCOUNTER → 2023-11-25 | Outpatient (CLI) | payer MEDICARE | LOC: LAB.WCP 08:00 | PROVIDERS: ATTEND Physician Assistant Medical | DX: I74.8 Embolism and thrombosis of other arteries (principal); Z79.01 Long term (current) use of anticoagulants; Z86.711 Personal history of pulmonary embolism ==

== ENCOUNTER → 2023-12-04 | Outpatient (CLI) | payer MEDICARE ==
[2023-12-04 18:13] LABS: BASOPHILS # (AUTO) 0.1 10^3/uL (0.0-0.1); EOSINOPHILS # (AUTO) 0.3 10^3/uL (0.0-0.7); EOSINOPHILS % (AUTO) 2.8 %; HCT - HEMATOCRIT 39.7 % (42.0-52.0); HGB - HEMOGLOBIN 12.1 g/dL (14.0-18.0); LYMPHOCYTES # (AUTO) 2.1 10^3/uL (1.5-3.5); MEAN CORPUSCULAR HEMOGLOBIN 30.9 pg (27.0-31.0); MEAN CORPUSCULAR HGB CONC 30.5 g/dL (32.0-36.0); MEAN CORPUSCULAR VOLUME 101.5 fL (80.0-94.0); MEAN PLATELET VOLUME 10.1 fL (7.4-11.4); MONOCYTES % (AUTO) 9.4 %; NEUTROPHILS # (AUTO) 6.5 10^3/uL (1.5-6.6); NEUTROPHILS % (AUTO) 64.4 %; PLT - PLATELET COUNT 233 10^3/uL (130-450); RED BLOOD COUNT 3.91 10^6/uL (4.70-6.10); RED CELL DISTRIBUTION WIDTH 13.9 % (12.0-15.0); WHITE BLOOD COUNT 10.1 x10^3/uL (4.8-10.8)
== END ==
LOC: LAB.N 11:42
PROVIDERS: ATTEND Physician Assistant Medical
DX: K92.1 Melena (principal)
CPT/HCPCS: 36415; 82728; 83540; 84466; 85025

== ENCOUNTER 2023-12-18 08:00 | Outpatient (CLI) | payer MEDICARE | END 2023-12-18 08:01 | disposition home or self-care (01) | LOC: LAB.WCP 08:00 | PROVIDERS: ATTEND Physician Assistant Medical | DX: I21.3 ST elevation (STEMI) myocardial infarction of unspecified site (principal); I74.8 Embolism and thrombosis of other arteries; Z79.01 Long term (current) use of anticoagulants; Z86.711 Personal history of pulmonary embolism ==

== ENCOUNTER → 2023-12-25 | Outpatient (CLI) | payer MEDICARE | LOC: LAB.WCP 08:00 | PROVIDERS: ATTEND Physician Assistant Medical | DX: I74.8 Embolism and thrombosis of other arteries (principal); Z79.01 Long term (current) use of anticoagulants; Z86.711 Personal history of pulmonary embolism ==

== ENCOUNTER 2023-12-28 07:45 | Outpatient (CLI) | payer MEDICARE ==
[2023-12-28 12:08] LABS: BASOPHILS # (AUTO) 0.1 10^3/uL (0.0-0.1); BASOPHILS % (AUTO) 0.8 %; EOSINOPHILS # (AUTO) 0.3 10^3/uL (0.0-0.7); EOSINOPHILS % (AUTO) 2.9 %; HCT - HEMATOCRIT 38.3 % (42.0-52.0); HGB - HEMOGLOBIN 12.1 g/dL (14.0-18.0); LYMPHOCYTES # (AUTO) 1.4 10^3/uL (1.5-3.5); MEAN CORPUSCULAR HEMOGLOBIN 31.6 pg (27.0-31.0); MEAN CORPUSCULAR HGB CONC 31.6 g/dL (32.0-36.0); MONOCYTES # (AUTO) 0.8 10^3/uL (0.0-1.0); MONOCYTES % (AUTO) 9.2 %; NEUTROPHILS # (AUTO) 6.2 10^3/uL (1.5-6.6); NEUTROPHILS % (AUTO) 70.8 %; PLT - PLATELET COUNT 167 10^3/uL (130-450); RED BLOOD COUNT 3.83 10^6/uL (4.70-6.10); RED CELL DISTRIBUTION WIDTH 14.7 % (12.0-15.0); WHITE BLOOD COUNT 8.7 x10^3/uL (4.8-10.8)
[2023-12-28 12:28] LABS: ALBUMIN 4.1 g/dL (3.2-5.5); ALBUMIN/GLOBULIN RATIO 1.2 (1.0-2.2); BILIRUBIN,TOTAL 0.7 mg/dL (0.2-1.0); CALCIUM 10.1 mg/dL (8.5-10.3); CREATININE 1.1 mg/dL (0.6-1.3); POTASSIUM 4.7 mmol/L (3.5-4.5); TOTAL PROTEIN 7.6 g/dL (6.4-8.9)
[2023-12-28 21:33] LABS: BILIRUBIN,URINE NEGATIVE (NEGATIVE); GLUCOSE, URINE (UA) NEGATIVE (NEGATIVE); KETONES,URINE (UA) NEGATIVE (NEGATIVE); LEUKOCYTE ESTERASE, URINE NEGATIVE (NEGATIVE); NITRITE,URINE NEGATIVE (NEGATIVE); OCCULT BLOOD,URINE NEGATIVE (NEGATIVE); PROTEIN,URINE NEGATIVE (NEGATIVE); UROBILINOGEN,URINE 0.2 (NORMAL) E.U./dL (NORMAL)
[2023-12-28 22:16] LABS: BACTERIA,URINE None Seen /HPF (None Seen); CLARITY,URINE CLEAR (CLEAR); CRYSTALS,URINE 26-50 Ca Oxalate /LPF; RBC,URINE 0-5 /HPF (0-5); SQUAMOUS EPITHELIAL CELL,UR RARE Squamous (<= Few)
== END 2023-12-28 08:00 | disposition home or self-care (01) ==
LOC: LAB.N 07:45
PROVIDERS: ATTEND Registered Nurse
DX: R41.82 Altered mental status, unspecified (principal)
CPT/HCPCS: 36415; 80053; 81001; 85025; 87086

== ENCOUNTER 2023-12-28 08:00 | Outpatient (CLI) | payer MEDICARE | END 2023-12-28 08:01 | disposition home or self-care (01) | LOC: LAB.N 08:00 | PROVIDERS: ATTEND Registered Nurse | DX: R41.82 Altered mental status, unspecified (principal) | CPT/HCPCS: 36415; 80053; 81001; 82962; 85025; 87086 ==

== ENCOUNTER 2023-12-31 15:30 | Outpatient (CLI) | payer MEDICARE ==
--- NOTE | 2023-12-31 16:04 | Sleep Patient Instructions ---
Sleep Center Visit Summary - Patient Visit Information Reason for Visit: Initial consultation to re-establish care - Patient Instructions Additional Instructions: You will be completing a sleep study, either an in-lab polysomnography (PSG) or home sleep study (HST). You will follow-up in the sleep care office after the sleep study is completed to hear the results and talk about therapy, if needed. You will be called by our office staff to schedule this appointment, but you may contact us with any questions. - Clinic Information Contact: [facility] [address] [place] [id number] [email or web address] T: [phone]
[2023-12-31 16:10] VITALS: BP 109/56; O2SAT 95
--- NOTE | 2023-12-31 16:10 | SLEEP CARE CONSULTATION ---
Information from patient questionnaire entered by Angela Sherman. I have reviewed and concur with the information entered by Angela Sherman. This document represents the service I personally performed and the decisions made by me, Venecia Acosta ARNP. History of Present Illness Service Date and Time: 12/31/2023 1530 Reason for Visit: New patient, Previously diagnosed sleep apnea, sleep apnea on CPAP therapy, Re-establish care Accompanied by: Spouse (Arthur) Chief Complaint: reports: Insomnia, Unrefreshed sleep, Snoring, Excessive daytime sleepiness, Observed pauses in breathing, Fatigue, Frequent awakenings at night, Other (UPDATE SUPPLIES) Date of Onset: 2005 Usual bedtime: 930PM Time it takes to fall asleep: 30MINS Snores at night: Yes Observed to quit breathing while asleep: Yes Sleeps alone due to snoring: Yes Number of times waking at night: 2 Reasons for waking at night: reports: Snoring. denies: Choking, Gasping for air Toss, Turn, or Twitch while sleeping: Yes Recalls having dreams: Yes (has very vivid dreams) Usually gets out of bed at: 5AM Feels refreshed in the morning: No Morning headache: No Sleepy or fatigued during the day: Yes Ever fallen asleep while driving: No Takes day naps: Yes (daily for 40-90 minutes) Dreams during day naps: Yes Prior sleep studies: Yes Additional HPI information: ZAIDA FELDER was previously diagnosed to have severe, AHI 49, obstructive sleep apnea-hypopnea syndrome and comes in today to re-establish care for CPAP therapy. He is accompanied by his today. He says his CPAP was one that was on the recall and he stopped using it once he found out. He had 2 different surgeries this year and he is currently on oxygen, 2 L, at night because his oxygen saturation would go down during the night. He has returned to try to get a new CPAP and restart therapy. - Parasomnia Symptoms Ever been unable to move upon waking from sleep: No Walks in sleep: No Talks in sleep: Yes Ever acted out dreams in sleep: Yes Ever felt weak in the knees when startled or emotional: No Bothered by creepy, crawly, restless sensations in legs: No Problems with memory or concentration: Yes CPAP Compliance Data Compliance data discussion: He used to use [employer] for his supplies. He has not used his Renay CPAP machine for a year or more. Subjective Initial [place] Sleepiness Scale score: 11 (12/04/23) Past Medical History Past Medical History: reports: Hypertension, Claustrophobia, Arthritis, Depression, Other (aortic aneurysm; pulmonary embolism on warfarin ) Social History The patient's occupation is a RE. Patient is and lives in [place]. Have you smoked in the past 12 months: Yes Cigarettes per day (20/pack): 20 Years of smokin Smoking Pack Years: 50.0 Alcohol use: No Caffeine use: Yes Caffeine amount and frequency: 2-3 CUPS DAILY Family History Family history of sleep disordered breathing: Yes Family Hx Sleep Apnea: Sibling: Snoring, Sleep apnea - Treated Allergies and Home Medications Known drug allergies: Yes ( LISTED ) Drug allergies reviewed: Yes Home medication list reviewed: Yes (as listed in EMR) Allergy and home medication list: Allergies oxycodone Adverse Reaction (Verified 12/29/23 15:13) Hallucinations Review of Systems Cardiovascular: reports: irregular heart rate or pulse, leg or foot swelling. denies: high blood pressure Respiratory: reports: shortness of breath, wheeze, sputum production Gastrointestinal: denies: heartburn Neurological: denies: headaches Psychiatric: reports: depression Ear/Nose/Throat: reports: nasal congestion, sinus problems, dry mouth/throat, hoarseness, injury to nose, tonsillectomy, wisdom teeth removed Endocrine: reports: sluggishness, too hot or cold Musculoskeletal: reports: joint pain, back pain, joint swelling, muscle pain or cramping, mobility problems Physical Exam Vital signs obtained and entered by: ANGELA Oleary MA Blood Pressure: 109/56 (LEFT ARM) Cuff size: regular Heart Rate: 87 O2 Saturation: 95 Height: 6 ft 2 in Weight: 238 lb Body Mass Index: 30.5 BMI Classification: Obese Neck circumference: 18 Heart: regular rate and rhythm Lungs: clear bilaterally Impression and Plan 1. Suspected Obstructive Sleep Apnea-Hypopnea Syndrome, as previously diagnosed and as suggested by a history of loud and irregular snoring, observed cessation of breath while asleep, frequent awakening during the night, unrefreshed sleep, and excessive daytime sleepiness. Narrow oropharynx and obesity are common predisposing factors for obstructive sleep apnea-hypopnea syndrome. I recommend proceeding to polysomnography to confirm the diagnosis and to assess severity. If the patient has significant sleep disordered breathing, a manual CPAP titration study will also be performed to find the optimal treatment pressure. I informed the patient of what the sleep studies involve and after some discussion, obtained agreement to proceed. The pathophysiology of obstructive sleep apnea-hypopnea syndrome was discussed with the patient and health risks of cardiovascular and cerebrovascular disease if not treated. Risks of drowsy driving discussed in detail and patient advised to avoid long distance driving and to lathe puller at the first sign of drowsiness. Patient agreed to plan. * Schedule polysomnography * Avoid long distance driving or driving when feeling sleepy. * Avoid alcohol, sedative and muscle relaxant around bedtime. * Attempt to lose weight. * Review instructions provided by trained office staff on how to prepare for the sleep study. * Return for follow-up after sleep study completed. Counseling Topics: Weight loss health impact Follow up with Sleep Care in: other (after sleep study resulted) Plan: PSG/HST Visit Type: In Office Time Spent with Patient (minutes): 30 Provider Statement: I spent 100% of the Face to Face Visit with the patient with greater than 50% spent counseling the patient and coordination of care.
== END 2023-12-31 15:31 | disposition home or self-care (01) ==
LOC: SC 15:30
PROVIDERS: ATTEND Nurse Practitioner Family
DX: G47.33 Obstructive sleep apnea (adult) (pediatric) (principal); F17.210 Nicotine dependence, cigarettes, uncomplicated
CPT/HCPCS: 99203; G0463; 99212

== ENCOUNTER → 2024-01-08 | Outpatient (CLI) | payer MEDICARE | LOC: LAB.WCP 08:00 | PROVIDERS: ATTEND Physician Assistant Medical | DX: I21.3 ST elevation (STEMI) myocardial infarction of unspecified site (principal); Z79.01 Long term (current) use of anticoagulants; I74.8 Embolism and thrombosis of other arteries; Z86.711 Personal history of pulmonary embolism ==

== ENCOUNTER 2024-01-21 19:30 | Outpatient (CLI) | payer MEDICARE | END 2024-01-21 19:31 | disposition home or self-care (01) | LOC: SC 19:30 | PROVIDERS: ATTEND Nurse Practitioner Family | DX: G47.33 Obstructive sleep apnea (adult) (pediatric) (principal); G47.61 Periodic limb movement disorder; I10 Essential (primary) hypertension; F32.A Depression, unspecified | CPT/HCPCS: 95810 ==

== ENCOUNTER → 2024-01-22 | Outpatient (CLI) | payer MEDICARE | LOC: LAB.WCP 08:00 | PROVIDERS: ATTEND Physician Assistant Medical | DX: Z79.01 Long term (current) use of anticoagulants (principal); Z86.711 Personal history of pulmonary embolism ==

== ENCOUNTER 2024-02-05 09:20 | Outpatient (CLI) | payer MEDICARE ==
--- NOTE | 2024-02-05 09:52 | Sleep Patient Instructions ---
Sleep Center Visit Summary - Patient Visit Information Reason for Visit: Sleep study follow-up - Patient Instructions Additional Instructions: You are being started on CPAP therapy. You will be completing a titration sleep study in our sleep lab where you will be sleeping with the CPAP machine on and we will be adjusting your pressures to find your optimal pressure settings. Once we have your results back, we will call you and schedule a follow up to go over the results, you may contact us with any questions or issues as needed. - Clinic Information Contact: [facility] [address] [place] [id number] [email or web address] T: [phone]
--- NOTE | 2024-02-05 09:54 | SLEEP CARE CONSULTATION ---
Information from patient questionnaire entered by Angela Sherman. I have reviewed and concur with the information entered by Angela Sherman. This document represents the service I personally performed and the decisions made by , Venecia Acosta ARNP. History of Present Illness Service Date and Time: 02/05/2024 0920 Accompanied by: Spouse (Kat) Initial [place] Sleepiness Scale score: 11 (12/04/23) Current [place] Sleepiness Scale score: 12 Additional HPI information: ZAIDA FELDER returns for follow up and results of the recently performed polysomnography. The sleep study showed very severe obstructive sleep apnea with an average AHI of 73.9 and mayra oxygen saturation of 83%. He had moderate PLMs not contributing to sleep fragmentation. I explained the pathophysiology behind obstructive sleep apnea. We then spent quite a bit of time discussing different treatment options. For mild obstructive sleep apnea, surgery and oral appliance are alternatives to nasal CPAP therapy but in moderate or severe cases, nasal CPAP is the most effective and reliable treatment. I reviewed the impact of weight changes on sleep apnea and strongly recommended losing weight. After some discussion, the patient opted to go with the nasal CPAP therapy. A manual titration study will be ordered to find optimal pressure with office adjustments. Patient does not drink alcohol. Patient was cautioned about risks of drowsy driving until sleepiness symptoms resolve. Patient denies drowsy driving. He is not driving right now. Sleep Study - Results Type of Sleep Study: Polysomnography (COMPLETED 01/21/24) Prior sleep studies: Yes Polysomnography/Home Sleep Study results: IMPRESSION: The quality of the study is good. 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 The sleep architecture was abnormal for sleep fragmentation and lack of REM and slow wave sleep (N3). Respiratory monitoring showed very severe obstructive sleep apnea-hypopnea (AHI = 73.9) associated with frequent arousals, oxyhemoglobin desaturation and mild hypoxia (mayra oxygen saturation of 83%). There were also central apneas. The respiratory events occurred independently of sleep stage and body position (supine AHI = 77.8; non-supine = 50.00). Snore was light to loud in intensity. There was moderate periodic leg movement of sleep not contributing to the sleep fragmentation. Cardiac rhythm was normal sinus rhythm without significant arrhythmia. No abnormal behavior (parasomnia) observed during the night. Allergies and Home Medications Known drug allergies: Yes (as listed) Drug allergies reviewed: Yes Home medication list reviewed: Yes (no changes) Allergy and home medication list: Allergies oxycodone Adverse Reaction (Verified 02/03/24 14:35) Hallucinations Review of Systems Review of systems same as previous: Yes (no changes) Physical Exam Vital signs obtained and entered by: VENECIA CONDE Blood Pressure: 112/64 Cuff size: regular (left arm) Heart Rate: 63 O2 Saturation: 94 Height: 6 ft 2 in Weight: 241 lb 3.2 oz Body Mass Index: 30.9 BMI Classification: Obese Impression and Plan 1. Obstructive Sleep Apnea-Hypopnea Syndrome, very severe, with lowest oxygen saturation of 83%. Obviously this is the cause of the patients symptoms of unrefreshed sleep, and excessive daytime sleepiness. Positive pressure therapy could benefit hypertension and depression. As mentioned above, the patient will be started on nasal autoCPAP therapy. A manual titration study will be completed to find optimal treatment pressure with office adjustments. Compliance guidelines also reviewed. Because the apnea is more severe supine, I instructed to avoid sleeping supine using pillow positioning until able to start CPAP use. 2. Periodic limb movement, moderate, that did not fragment patients sleep. Periodic limb movement of sleep (PLMS) is characterized by episodes of repetitive limb movements that occur during sleep and usually involve the lower limbs. The etiology is unknown. Sleep hygiene methods can also improve sleep as well as lifestyle changes such as regular exercise. Patient was advised that no treatment is needed at this time. If symptoms increase, then further evaluation is indicated. 3. Hypoxemia, mild, with a mayra oxygen saturation of 83% and 86.4 minutes spent under 90%. The baseline oxygen saturation was low normal with an average oxygen saturation of 89%. 4. Obesity, unspecified. Currently patients BMI is 30.9. Obesity increases the risk of apnea, CPAP pressure requirements and overall health risks especially cardiovascular and diabetes. Thus patient is advised to lose weight. * Titration study. * Attempt to lose weight. * Avoid alcohol consumption near bedtime. * Avoid supine sleep until using CPAP. * The patient is again cautioned about driving until sleepiness completely resolves. * Return for results of titration study and PAP therapy setup. Counseling Topics: Sleeping position, Weight loss health impact Plan: Titration study and followup Visit Type: In Office Time Spent with Patient (minutes): 20 Provider Statement: I spent 100% of the Face to Face Visit with the patient with greater than 50% spent counseling the patient and coordination of care.
[2024-02-05 09:58] VITALS: BP 112/64; O2SAT 94
== END 2024-02-05 09:21 | disposition home or self-care (01) ==
LOC: SC 09:20
PROVIDERS: ATTEND Nurse Practitioner Family
DX: G47.33 Obstructive sleep apnea (adult) (pediatric) (principal); G47.61 Periodic limb movement disorder; R09.02 Hypoxemia; E66.9 Obesity, unspecified; Z68.30 Body mass index [BMI] 30.0-30.9, adult
CPT/HCPCS: 99213; G0463; 99212

== ENCOUNTER 2024-02-29 15:44 | Outpatient (CLI) | payer MEDICARE | END 2024-02-29 22:19 | disposition critical access hospital (66) | LOC: EMS 15:44 | DX: R53.1 Weakness (principal); W18.39XA Other fall on same level, initial encounter; Y92.008 Other place in unspecified non-institutional (private) residence as the place of occurrence of the external cause; Z79.01 Long term (current) use of anticoagulants | CPT/HCPCS: A0425; A0429 ==

== ENCOUNTER 2024-02-29 16:06 | Emergency (ER) | payer MEDICARE ==
--- NOTE | 2024-02-29 16:10 | ED Physician Documentation ---
PD HPI HEAD INJURY - Stated complaint Stated Complaint: GLF - History obtained from History obtained from: Patient, EMS - Additional information Additional information: 79-year-old gentleman on warfarin had a ground-level fall. He was getting ready to walk his dog and tripped and hit the back of his head. He does not feel at all injured. There is no loss of consciousness. No other injuries. He has no headache. PD PAST MEDICAL HISTORY - Past Medical History Cardiovascular: Hypertension, Deep vein thrombosis, Pulmonary embolism, IA, Other Respiratory: Sleep apnea, CPAP use Endocrine/Autoimmune: Type 2 diabetes GI: GERD, Other : Kidney stones HEENT: None Psych: Depression Musculoskeletal: Osteoarthritis Derm: None - Past Surgical History Past Surgical History: Yes General: Cholecystectomy - Present Medications Home Medications: Ambulatory Orders Medication Instructions Recorded Confirmed Ascorbic Acid [Vitamin C] 1,000 mg PO DAILY 03/24/13 12/31/23 Cholecalciferol (Vitamin D3) 50 mcg PO DAILY 03/24/13 12/31/23 [Vitamin D3] Multivitamin [Multivitamins] 1 each PO DAILY 03/24/13 12/31/23 Warfarin Sodium 5 mg PO DAILY 03/24/13 12/31/23 Tramadol HCl 50 mg PO TID PRN 10/08/13 12/31/23 Atorvastatin Calcium 40 mg PO QPM 11/27/20 12/31/23 HYDROcod/ACETAM 5/325 [Philpot 5/325] 1 tab PO Q6H PRN #12 tablet 09/14/22 12/31/23 FLUoxetine [PROzac] See Rx Instructions .ROUTE .COMPLEX 12/31/23 12/31/23 Ipratropium [Atrovent] See Rx Instructions .ROUTE .COMPLEX 12/31/23 12/31/23 Pantoprazole [Protonix] See Rx Instructions .ROUTE .COMPLEX 12/31/23 12/31/23 dilTIAZem HCL [Diltiazem 24Hr ER] See Rx Instructions .ROUTE .COMPLEX 12/31/23 12/31/23 traZODone [Desyrel] See Rx Instructions .ROUTE .COMPLEX 12/31/23 12/31/23 - Allergies Allergies/Adverse Reactions: Allergies Allergy/AdvReac Type Severity Reaction Status Date / Time oxycodone AdvReac Hallucinati Verified 02/29/24 16:15 ons - Social History Does the pt smoke?: Yes Smoking Status: Current every day smoker Does the pt drink ETOH?: No Does the pt have substance abuse?: No - Immunizations Immunizations are current?: Yes PD ED PE NORMAL - Vitals Vital signs reviewed: Yes - General General: Alert and oriented X 3, No acute distress - HEENT HEENT: PERRL, EOMI - Neck Neck: Supple, no meningeal sign, No bony TTP, C-Spine cleared by NEXUS criteria - Neuro Neuro: Alert and oriented X 3 Eye Opening: Spontaneous Motor: Obeys Commands Verbal: Oriented GCS Score: 15 Results - Vitals Vitals: Vital Signs - 24 hr 02/29/24 16:09 Temperature 36.2 C L Heart Rate 78 Respiratory 17 Rate Blood Pressure 127/63 O2 Saturation 92 Oxygen O2 Source Room air - Labs Labs: Laboratory Tests 02/29/24 16:10 INR (Fingerstick) 1.8 H - Rads (name of study) CT of the head was unremarkable without trauma. Relevant Findings:: Final report received, EMP independent interpretation of test PD Medical Decision Making - ED course ED course: He was brought in as a modified trauma due to head injury and being anticoagulated. His INR was slightly subtherapeutic at 1.8. CT of the head was negative. He did not seem injured per se. Departure - Departure Disposition: 01 Home, Self Care Clinical Impression: Subtherapeutic anticoagulation Head injury Qualifiers: Encounter type: initial encounter Qualified Code(s): S09.90XA - Unspecified injury of head, initial encounter Condition: Good Record reviewed to determine appropriate education?: Yes Instructions: ED Head Injury Closed Comments: Your INR today was 1.8, likely slightly below the goal set for you. Please discuss this with whomever prescribes your blood thinner. Call your doctor to arrange a follow-up appointment, make the next available appointment. In the interim, return anytime if worse or if new symptoms develop.
--- NOTE | 2024-02-29 16:47 | CT Report ---
PROCEDURE: Head WO INDICATIONS: head inj TECHNIQUE: Noncontrast 4.5 mm thick angled axial sections acquired from the foramen magnum to the vertex. For r adiation dose reduction, the following was used: automated exposure control, adjustment of mA and/or kV according to patient size. COMPARISON: None. FINDINGS: Image quality: Excellent. CSF spaces: Basal cisterns are patent. No extra-axial fluid collections. Ventricles are normal in size and shape. Brain: No midline shift. No intracranial masses or hemorrhage. [place]-white matter interface is norm al. There is age-related volume loss and mild/mod/severe periventricular white matter change consiste nt with small vessel ischemic change. Small old lacunar infarction in the head of the caudate on the left. Skull and face: Calvarium and visualized facial bones are intact, without suspicious lesions. Sinuses: Visualized sinuses and mastoids are clear. IMPRESSION: No acute intracranial pathology. Reviewed by: Erick Holder MD on 02/29/2024 4:46 PM PDT Approved by: Erick Holder MD on 02/29/2024 4:46 PM PDT Station ID: [id number]
[2024-02-29 17:08] VITALS: BP 128/80; O2SAT 98
== END 2024-02-29 17:01 | disposition home or self-care (01) ==
LOC: EDUNIT# → ED 16:06
DX: S09.90XA Unspecified injury of head, initial encounter (principal); W01.0XXA Fall on same level from slipping, tripping and stumbling without subsequent striking against object, initial encounter; I10 Essential (primary) hypertension; E11.9 Type 2 diabetes mellitus without complications; F17.200 Nicotine dependence, unspecified, uncomplicated; Z79.01 Long term (current) use of anticoagulants; Z79.899 Other long term (current) drug therapy
CPT/HCPCS: 36416; 85610; 99284

== ENCOUNTER 2024-03-08 19:40 | Outpatient (CLI) | payer MEDICARE | END 2024-03-08 19:41 | disposition home or self-care (01) | LOC: SC 19:40 | PROVIDERS: ATTEND Nurse Practitioner Family | DX: G47.33 Obstructive sleep apnea (adult) (pediatric) (principal) | CPT/HCPCS: 95810 ==

== ENCOUNTER 2024-03-25 15:38 | Outpatient (CLI) | payer MEDICARE ==
[2024-03-25 18:11] LABS: % IRON SATURATION 17 % (20-50); ALBUMIN 4.3 g/dL (3.2-5.5); ALBUMIN/GLOBULIN RATIO 1.3 (1.0-2.2); ALKALINE PHOSPHATASE 67 IU/L (42-121); ALT ALANINE AMINOTRANSFERASE 14 IU/L (10-60); AST ASPARTATE AMINOTRANSFERASE 18 IU/L (10-42); BILIRUBIN,TOTAL 0.5 mg/dL (0.2-1.0); BUN - BLOOD UREA NITROGEN 21 mg/dL (6-20); CALCIUM 10.4 mg/dL (8.5-10.3); CARBON DIOXIDE - CO2 32 mmol/L (21-32); CHLORIDE 105 mmol/L (101-111); CHOL/HDL RATIO 2.9 (<5.0); CHOLESTEROL 90 mg/dL; CREATININE 1.1 mg/dL (0.6-1.3); GFR - MDRD 65 (>89); GLUCOSE 90 mg/dL (74-104); HDL CHOLESTEROL 31 mg/dL; IRON 49 ug/dL (50-212); LDL CHOLESTEROL,CALCULATED 40 mg/dL; LDL/HDL RATIO 1.3 (<3.6); POTASSIUM 4.5 mmol/L (3.5-4.5); SODIUM 142 mmol/L (135-145); TOTAL IRON BINDING CAPACITY 283 ug/dL (250-450); TOTAL PROTEIN 7.5 g/dL (6.4-8.9); TRANSFERRIN 202 mg/dL (203-362); TRIGLYCERIDES 97 mg/dL (48-352); VLDL CHOLESTEROL 19 mg/dL
[2024-03-25 18:22] LABS: BASOPHILS # (AUTO) 0.1 10^3/uL (0.0-0.1); EOSINOPHILS # (AUTO) 0.2 10^3/uL (0.0-0.7); EOSINOPHILS % (AUTO) 2.5 %; HCT - HEMATOCRIT 44.3 % (42.0-52.0); HGB - HEMOGLOBIN 13.7 g/dL (14.0-18.0); LYMPHOCYTES # (AUTO) 2.1 10^3/uL (1.5-3.5); LYMPHOCYTES % (AUTO) 25.7 %; MEAN CORPUSCULAR HEMOGLOBIN 30.5 pg (27.0-31.0); MEAN CORPUSCULAR HGB CONC 30.9 g/dL (32.0-36.0); MEAN CORPUSCULAR VOLUME 98.7 fL (80.0-94.0); MEAN PLATELET VOLUME 10.4 fL (7.4-11.4); MONOCYTES # (AUTO) 0.8 10^3/uL (0.0-1.0); MONOCYTES % (AUTO) 10.1 %; NEUTROPHILS # (AUTO) 4.9 10^3/uL (1.5-6.6); NEUTROPHILS % (AUTO) 60.5 %; PLT - PLATELET COUNT 142 10^3/uL (130-450); RED BLOOD COUNT 4.49 10^6/uL (4.70-6.10); RED CELL DISTRIBUTION WIDTH 14.4 % (12.0-15.0); WHITE BLOOD COUNT 8.1 x10^3/uL (4.8-10.8)
[2024-03-25 21:19] LABS: ESTIMATED AVERAGE GLUCOSE 134 mg/dL (70-100); HEMOGLOBIN A1c% 6.3 % (4.27-6.07)
== END 2024-03-25 15:39 | disposition home or self-care (01) ==
LOC: LAB.N 15:38
PROVIDERS: ATTEND Internal Medicine
DX: I50.22 Chronic systolic (congestive) heart failure (principal); E11.9 Type 2 diabetes mellitus without complications; K92.1 Melena
CPT/HCPCS: 36415; 80053; 80061; 82728; 83036; 83540; 83721; 84466; 85025

== ENCOUNTER 2024-03-28 16:17 | Outpatient (CLI) | payer MEDICARE ==
--- NOTE | 2024-03-28 17:15 | XRAY Report ---
PROCEDURE: Lumbar Spine 2-3V INDICATIONS: LOW BACK PAIN TECHNIQUE: 2 views of the lumbar spine were acquired. COMPARISON: CT abdomen and pelvis 09/14/2022. FINDINGS: Surgical change: Cholecystectomy clips. Aorto iliac stent graft. Bones: 5 [id number]-[id number]-flublbe vertebrae are present. Mild scoliosis. Multilevel disc space height loss mo st pronounced at L2-L3, L3-L4, and L4-L5. Osteophytosis. Lower lumbar spine facet joint hypertrophy. No vertebral body compression fractures. No suspicious bony lesions. Soft tissues: Overlying bowel gas pattern is normal. No suspicious soft tissue calcifications. IMPRESSION: Moderate to severe DDD. No significant interval change appreciated compared to 2021. No compression fracture. Reviewed by: Felipe Barnett MD on 03/28/2024 5:13 PM PDT Approved by: Felipe Barnett MD on 03/28/2024 5:13 PM PDT Station ID: [id number]
--- NOTE | 2024-03-28 17:26 | XRAY Report ---
PROCEDURE: Knee 3V BL INDICATIONS: BILATERAL KNEE PAIN TECHNIQUE: views of the knee(s) were acquired. COMPARISON: None. FINDINGS: Left knee: Moderate degenerative changes most significant in the medial compartment. Patellar entheso latha. Small joint effusion and prepatellar soft tissue swelling. Vascular calcifications. Right knee: Moderate degenerative changes most significant in the medial compartment. Chondrocalcinos is. Patellar enthesopathy. Trace joint effusion and prepatellar soft tissue swelling. IMPRESSION: Moderate bilateral degenerative changes most significant in the medial compartments. Suspected soft t issue swelling in the prepatellar region and small joint effusions. If there is high concern for furt her derangement, consider MRI evaluation. Reviewed by: El Burt MD on 03/28/2024 5:24 PM PDT Approved by: El Burt MD on 03/28/2024 5:24 PM PDT Station ID: [id number]
== END 2024-03-28 16:18 | disposition home or self-care (01) ==
LOC: DI 16:17
PROVIDERS: ATTEND Physician Assistant Medical
DX: M51.36 Other intervertebral disc degeneration, lumbar region (principal); M47.816 Spondylosis without myelopathy or radiculopathy, lumbar region; M17.0 Bilateral primary osteoarthritis of knee

== ENCOUNTER 2024-04-05 09:46 | Outpatient (CLI) | payer MEDICARE ==
--- NOTE | 2024-04-05 18:21 | SLEEP CARE CONSULTATION ---
Information from patient questionnaire entered by Evelio Sherman. I have reviewed and concur with the information entered by Evelio Sherman. This document represents the service I personally performed and the decisions made by , Venecia Acosta ARNP. History of Present Illness Service Date and Time: 04/05/2024 0946 Initial [place] Sleepiness Scale score: 11 (12/04/23) Current [place] Sleepiness Scale score: 10 Additional HPI information: ZAIDA FELDER returns for follow up of the sleep study with a manual CPAP titration study performed on 03/08/2024. The patient was informed of the following polysomnography findings: CPAP was initiated at 6 cmH2O and titrated up to CPAP at 10 cmH2O. None of the tested pressures appeared to be optimal (AHI of 15.4 per hour on the final pressure). Oxygen saturation was mildly low due to borderline low baseline oxygen saturation of 90%. The patient did not tolerate positive airway pressure therapy well. The patients sleep efficiency was poor. The patient will be started on the nasal CPAP therapy with pressure set at 8-20 cmH20 will be ordered with rationale explained. A manual titration study will be ordered if unable to find optimal pressure with office adjustments. I explained how CPAP machine works and what to expect when using the machine. Using CPAP every night in order to get used to it was emphasized. Patient advised to put CPAP mask on before getting into bed so as not to fall asleep without CPAP. To assist acclimation to CPAP use, it could also be used for a short time during day while reading or watching TV. The patient was instructed to call the CPAP supplier to discuss any mechanical problem that may occur. If the mask given is uncomfortable or is difficult to keep on through the night even with adjustment, contact the CPAP supplier as many will replace with another mask style if notified before 30 days. If snoring or perceives is not getting enough air or too much air from the machine, notify this office. Patient was cautioned about risks of drowsy driving until sleepiness symptoms resolve. Patient denies drowsy driving. Sleep Study - Results Type of Sleep Study: Polysomnography (COMPLETED 01/21/24 TITRATION COMPLETED 03/08/24) Prior sleep studies: Yes Polysomnography/Home Sleep Study results: IMPRESSION: The quality of the study is good. CPAP was initiated at 6 cmH2O and titrated up to CPAP at 10 cmH2O. None of the tested pressures appeared to be optimal (AHI of 15.4 per hour on the final pressure). Oxygen saturation was mildly low due to borderline low baseline oxygen saturation of 90%. The patient did not tolerate positive airway pressure therapy well. The patients sleep efficiency was poor. The sleep architecture was abnormal for sleep fragmentation and lack of REM and slow wave sleep (N3). There was no periodic leg movement of sleep. Cardiac rhythm was normal sinus rhythm without significant arrhythmia. The patient had somniloquy and was confused when awake. Allergies and Home Medications Known drug allergies: Yes (as listed) Drug allergies reviewed: Yes Home medication list reviewed: Yes (Jardiance) Allergy and home medication list: Allergies oxycodone Adverse Reaction (Verified 03/31/24 08:36) Hallucinations Review of Systems Review of systems same as previous: Yes (no changes) Physical Exam Vital signs obtained and entered by: EVELIO Oleary MA Blood Pressure: 121/59 Cuff size: regular Heart Rate: 85 O2 Saturation: 92 Height: 6 ft 2 in Weight: 242 lb 3.2 oz Body Mass Index: 31.1 BMI Classification: Obese Impression and Plan 1. Obstructive Sleep Apnea-Hypopnea Syndrome, very severe. Gan follows up in office after titration study. He did not tolerate the pressure well and an optimal pressure was not attained during the night of the study. He exhibited some confusion and parasomnia type behaviors during the night of the study. A followup titration will not be attempted but we will start him on a APAP trial. Positive pressure therapy could benefit hypertension and depression. The patient will be started on nasal autoCPAP therapy with pressure set at 8-20 cmH2O. He is on nocturnal oxygen and an oxygen adaptor will be added to his prescription. Compliance guidelines also reviewed. A copy of compliance guidelines will be given for reference at check out. Because the apnea is more severe supine, I instructed to avoid sleeping supine using pillow positioning until able to start CPAP use. 2. Hypoxemia, mild, his oxygen saturation was mildly low due to borderline low baseline oxygen saturation of 90% on the night of his titration study. He says he normally uses oxygen during the night but did not on the night of his titration study. 3. Obesity, unspecified. Currently patients BMI is 31.1. Obesity increases the risk of apnea, CPAP pressure requirements and overall health risks especially cardiovascular and diabetes. Thus patient is advised to lose weight. * Nasal auto CPAP therapy, pressure at 8-20 cm H2O. * Oxygen adaptor * Attempt to lose weight. * Avoid supine sleep until using CPAP. * Return one month after CPAP obtained. I will assess response to therapy and compliance at that time. Counseling Topics: Weight loss health impact Prescriptions: Auto CPAP Plan: start cpap and compliance follow up Visit Type: In Office Time Spent with Patient (minutes): 22 Provider Statement: I spent 100% of the Face to Face Visit with the patient with greater than 50% spent counseling the patient and coordination of care.
[2024-04-05 18:25] VITALS: BP 121/59; O2SAT 92
== END 2024-04-05 09:47 | disposition home or self-care (01) ==
LOC: SC 09:46
PROVIDERS: ATTEND Nurse Practitioner Family
DX: G47.33 Obstructive sleep apnea (adult) (pediatric) (principal); R09.02 Hypoxemia; E66.9 Obesity, unspecified; Z68.31 Body mass index [BMI] 31.0-31.9, adult
CPT/HCPCS: 99213; G0463; 99212

== ENCOUNTER 2024-05-25 12:48 | Outpatient (CLI) | payer MEDICARE ==
[~2024-05-25 12:48] MED LIST: GADOTERATE MEGLUMINE 10 MMOL/20 ML VIAL ONE
[2024-05-25] MEDS: GADOTERATE MEGLUMINE 10 MMOL/20 ML VIAL IVP ONE (15:19)
--- NOTE | 2024-05-25 18:09 | MRI Report ---
PROCEDURE: Brain W/WO INDICATIONS: ALTERED MENTAL STATUS CONTRAST: clariscan 20ml TECHNIQUE: Noncontrast axial T1 spin echo, axial T2 fast spin echo, sagittal and axial FLAIR, coronal T2 fast sp in echo, axial gradient echo, axial diffusion and ADC through the brain. After the administration of contrast, axial and coronal T1 spin echo with fat saturation through the brain. COMPARISON: Head CT, 02/29/2024 FINDINGS: Image quality: Diagnostic, with note made of motion artifact. CSF spaces: Basal cisterns are patent . No extra-axial fluid collections. Ventricles are normal in size and shape. Brain: No midline shift. No intracranial bleeds or masses. No abnormal intracranial enhancement. There is cerebral volume loss for age. There is periventricular white matter chronic small vessel is chemic change. The brainstem appears normal. Diffusion-weighted images demonstrate no acute ischemi c insults. No chronic ischemic insults. Normal intravascular flow voids are present. In this patie nt with this given history, scrutiny is given to the cerebellopontine angle cisterns and to the inter nal auditory canals. To the limits of this standard protocol study, no masses or abnormal enhancement can be seen within these regions. Skull and face: Calvarial marrow is normal in signal. Orbits appear normal. Incidental note is ma de of bilateral lens replacements. Sinuses: Sinuses and mastoids appear clear. IMPRESSION: No imaging explanation is found for the patient's presenting symptoms. No masses or abnormal enhancement can be seen. No prior territorial infarction can be seen. No findings of acute or subacute infarction are seen. Reviewed by: Kemal Bartlett MD on 05/25/2024 5:07 PM BHARGAVI Approved by: Kemal Bartlett MD on 05/25/2024 5:07 PM BHARGAVI Station ID: [id number]
== END 2024-05-25 12:49 | disposition home or self-care (01) ==
LOC: LAB 12:48
PROVIDERS: ATTEND Physician Assistant Medical
DX: R41.82 Altered mental status, unspecified (principal)
CPT/HCPCS: 36415; 70553; 82565; A9575

== ENCOUNTER 2024-06-28 15:23 | Outpatient (CLI) | payer MEDICARE ==
--- NOTE | 2024-06-28 16:07 | Sleep Patient Instructions ---
Sleep Center Visit Summary - Patient Visit Information Reason for Visit: First compliance follow-up for PAP therapy - Patient Instructions Additional Instructions: You were here for follow up of CPAP therapy. You will be continued on CPAP therapy with pressure at 13-16 cmH2O. Please let us know if the pressure change is uncomfortable and we can make further adjustments of the pressure. You should follow up with sleep care in 1-2 months. You may contact us sooner for any questions or concerns. - Clinic Information Contact: [facility] [address] [place] [address] [email or web address] T: [phone]
--- NOTE | 2024-06-28 16:10 | SLEEP CARE CONSULTATION ---
Information from patient questionnaire entered by Angela Sherman. I have reviewed and concur with the information entered by Angela Sherman. This document represents the service I personally performed and the decisions made by me, Venecia Acosta ARNP. History of Present Illness Service Date and Time: 06/28/2024 152 Previous diagnosis: Very Severe, Obstructive Sleep Apnea-Hypopnea Syndrome AHI: 73.9 (01/21/24) Reason for follow up: first compliance Accompanied by: Spouse (Kat) Equipment type: CPAP (RESMED Airsense 11, S/U 05/13/24) Equipment obtained from: [employer] (getting supplies) Mask style: Nasal Mask brand: Respironics (Wisp, XL cushion) Backup mask available: No Prior sleep studies: Yes Type of Sleep Study: Polysomnography (COMPLETED 01/21/24 TITRATION COMPLETED 03/08/24) HPI additional information: ZAIDA FELDER was diagnosed to have very severe, AHI 73.9, obstructive sleep apnea- hypopnea syndrome and returned today for CPAP therapy first compliance follow- up. Sleep Study - Results Type of Sleep Study: Polysomnography (COMPLETED 01/21/24 TITRATION COMPLETED 03/08/24) Prior sleep studies: Yes CPAP Compliance Data - Data Reviewed with Patient Average duration of nightly device use: 12 HRS 19 MINS Compliance rate %: 70 (05/08/24-06/06/24; 21/30 days used; 97% in last 30 days) Current pressure setting (cmH2O): 8-20 (median 9.9, avg 13.3, max 15.3) Average residual AHI: 6.7 Central apnea: 1.2 Obstructive apnea: 3.2 Hypopnea: 0.5 Average large leak: 2.3 Subjective Patient concerns: denies: aerophagia, mask discomfort, air blowing in eyes, mask leak noise, condensation in mask/hose, nasal congestion, dry mouth, nose, throat, epistaxis Observed to snore while using device: No Current pressure setting perceived as: comfortable On therapy, patient: reports: sleeping better, awakening more refreshed, being more awake and alert during the day, more rested overall. denies: drowsiness while driving (he is not driving) Initial [place] Sleepiness Scale score: 11 (12/04/23) Current [place] Sleepiness Scale score: 9 (06/28/24) Allergies and Home Medications Known drug allergies: No Drug allergies reviewed: Yes Home medication list reviewed: Yes (no changes) Allergy and home medication list: Allergies oxycodone Adverse Reaction (Verified 06/28/24 15:24) Hallucinations Review of Systems Review of systems same as previous: Yes (NO CHANGE) Physical Exam Vital signs obtained and entered by: ANGELA Oleary MA Blood Pressure: 146/67 (LEFT ARM) Cuff size: regular Heart Rate: 67 O2 Saturation: 93 Height: 6 ft 2 in Weight: 239 lb 9.6 oz Body Mass Index: 30.7 BMI Classification: Obese Impression and Plan 1. Obstructive Sleep Apnea-Hypopnea Syndrome, very severe, with good treatment compliance and fair apnea control with elevated residual AHI. On CPAP therapy, the patient has better sleep quality and is more rested overall. His says he is much more alert during the day. He has significant improvement of his sleep apnea however is slightly ineffective. The patients pressure will be changed to autoCPAP 13-16 cmH20 for elevation of residual AHI. Patient advised to contact me if pressure change is uncomfortable so that it can be adjusted. Goals for apnea control discussed. Patient's apnea severity and rationale for treatment to reduce apnea, improve sleep quality and reduce cardiovascular and cerebrovascular events was reviewed. I also reviewed the benefit of consistent device use of CPAP for hypertension, depression. 2. Obesity, unspecified. Currently patients BMI is 30.7. Obesity increases the risk of apnea, CPAP pressure requirements and overall health risks especially cardiovascular and diabetes. Thus patient is advised to lose weight. * Change auto CPAP pressure to 13-16 cmH2O * Notify me if snoring with mask or feeling that the pressure is too much or too little * Attempt to lose weight * Call this office if any problems using CPAP * Return for follow up in 1-2 months, or sooner if concerns arise Adjust device pressure to (cmH2O): 13-16 Counseling Topics: Spare mask, Weight loss health impact Follow up with Sleep Care in: 1-2 months Visit Type: In Office Time Spent with Patient (minutes): 20 Provider Statement: I spent 100% of the Face to Face Visit with the patient with greater than 50% spent counseling the patient and coordination of care.
[2024-06-28 16:17] VITALS: BP 146/67; O2SAT 93
== END 2024-06-28 15:24 | disposition home or self-care (01) ==
LOC: SC 15:23
PROVIDERS: ATTEND Nurse Practitioner Family
DX: G47.33 Obstructive sleep apnea (adult) (pediatric) (principal); E66.9 Obesity, unspecified; Z68.30 Body mass index [BMI] 30.0-30.9, adult
CPT/HCPCS: 99213; G0463; 99212